=== PATIENT | male | born 1970 | race Two or more races ===

== ENCOUNTER 2020-07-12 14:10 | Emergency (ER) | payer OTHER, MEDICAID ==
[~2020-07-12] VITALS: Ht 182.9 cm; Wt 81.6 kg
[2020-07-12 14:34] VITALS: BP 139/67
== END 2020-07-12 17:39 | disposition home or self-care (01) ==
LOC: ER 14:12
DX: S62.645A Nondisplaced fracture of proximal phalanx of left ring finger, initial encounter for closed fracture (principal); W01.0XXA Fall on same level from slipping, tripping and stumbling without subsequent striking against object, initial encounter; Y93.89 Activity, other specified; Y92.89 Other specified places as the place of occurrence of the external cause; Y99.8 Other external cause status
CPT/HCPCS: 29130; 73140

== ENCOUNTER 2021-05-06 05:08 | Emergency (ER) | payer MEDICAID, OTHER ==
[~2021-05-06] VITALS: Ht 180.3 cm; Wt 88.5 kg
[2021-05-06] MEDS ORDERED: NALOXONE HCL 1MG/ML 2ML SYRINGE ONE (05:13)
[2021-05-06] MEDS ORDERED: SODIUM CHLORIDE 0.9% 3,000 ML IV ONE (05:30)
[2021-05-06] MEDS ORDERED: NALOXONE HCL 1MG/ML 2ML SYRINGE IV ONE (06:30)
[2021-05-06] MEDS ORDERED: SODIUM CHLORIDE 0.9% 1,000 ML IV ONE (06:30)
[2021-05-06 06:53] LABS: Acetaminophen < 2.0 ug/mL (10-30); Salicylate < 1.7 mg/dL (2.8-20.0)
[2021-05-06 06:54] LABS: Albumin 2.9 g/dL (3.4-5.0); Anion Gap 7 (5-15); Blood Alcohol < 3.0 mg/dL (0-5); Blood Urea Nitrogen 4 mg/dL (7-18); Calcium 8.3 mg/dL (8.5-10.1); Carbon Dioxide 28 mmol/L (21-32); Chloride 101 mmol/L (98-107); Potassium 3.4 mmol/L (3.5-5.1); Sodium 136 mmol/L (136-145)
[2021-05-06 06:59] LABS: Basophils # (auto) 0 10 ^3/uL (0-0.2); Basophils % (auto) 0.5 % (0.0-2.0); Eosinophils # (auto) 0.1 10 ^3/uL (0-0.8); Eosinophils % (auto) 1.7 % (0.0-7.0); Hematocrit 42.7 % (41.0-53.0); Hemoglobin 15.1 g/dL (13.5-17.5); Lymphocytes # (auto) 0.8 10 ^3/uL (0.4-5.4); Lymphocytes % (auto) 21.5 % (10.0-50.0); Mean Corpuscular Hgb Conc. 35.3 g/dL (32.0-36.0); Mean Corpuscular Volume 96.2 fL (80.0-100.0); Monocytes # (auto) 0.4 10 ^3/uL (0-1.3); Monocytes % (auto) 9.4 % (0.0-12.0); Neutrophils # (auto) 2.6 10 ^3/uL (1.6-8.6); Neutrophils % (auto) 66.9 % (37.0-80.0); Nucleated Red Blood Cells % 0.1 %; Red Blood Cells 4.44 10^6/uL (4.5-5.90); Red Cell Distribution Width 12.4 % (11.8-14.3); White Blood Cell 3.9 10^3/uL (4.4-10.8)
[2021-05-06 07:00] VITALS: BP 138/85
[2021-05-06 07:03] LABS: Alanine Aminotransferase 54 U/L (16-61); Alkaline Phosphatase 118 U/L (45-117); Aspartate Aminotransferase 73 U/L (15-37); BUN/Creatinine Ratio 5.3; Bilirubin, Total 0.6 mg/dL (0.2-1.0); GFR African American 141 mL/min; GFR Non-African American 117 mL/min; Total Protein 7.1 g/dL (6.4-8.2)
[2021-05-06 07:08] LABS: Glucose 639 mg/dL (74-106)
[2021-05-06 07:52] LABS: Urine Bacteria FEW /hpf (None Seen); Urine Blood Negative /uL (Negative); Urine Specific Gravity 1.026 (1.001-1.035); Urine WBC <1 /hpf (0 - 3)
== END 2021-05-06 09:48 | disposition home or self-care (01) ==
LOC: ER 05:08 → EDBD 05:08 → ER 09:48
DX: T40.691A Poisoning by other narcotics, accidental (unintentional), initial encounter (principal); R41.82 Altered mental status, unspecified; R06.03 Acute respiratory distress; F12.10 Cannabis abuse, uncomplicated; E11.9 Type 2 diabetes mellitus without complications; Y92.89 Other specified places as the place of occurrence of the external cause
CPT/HCPCS: 36415; 71045; 80053; 80320; 80329; 81001; 82010; 84484; 85025; 93005; 96361; 96374; 99285; J2310; J7030

== ENCOUNTER 2021-08-13 19:08 | Inpatient (IN) | payer OTHER, MEDICAID ==
[~2021-08-13] VITALS: Ht 185.4 cm; Wt 92.8 kg
[2021-08-13 21:40] LABS: Basophils # (auto) 0.1 10 ^3/uL (0-0.2); Basophils % (auto) 1.7 % (0.0-2.0); Eosinophils # (auto) 0.2 10 ^3/uL (0-0.8); Eosinophils % (auto) 3.6 % (0.0-7.0); Hematocrit 42.2 % (41.0-53.0); Hemoglobin 15.2 g/dL (13.5-17.5); Lymphocytes # (auto) 1.6 10 ^3/uL (0.4-5.4); Lymphocytes % (auto) 34.5 % (10.0-50.0); Mean Corpuscular Hgb Conc. 35.9 g/dL (32.0-36.0); Mean Corpuscular Volume 91.8 fL (80.0-100.0); Monocytes # (auto) 0.6 10 ^3/uL (0-1.3); Monocytes % (auto) 12.5 % (0.0-12.0); Neutrophils # (auto) 2.2 10 ^3/uL (1.6-8.6); Neutrophils % (auto) 47.7 % (37.0-80.0); Nucleated Red Blood Cells % 0.2 %; Red Cell Distribution Width 13.4 % (11.8-14.3); White Blood Cell 4.7 10^3/uL (4.4-10.8)
[2021-08-13 21:51] LABS: INR 1.07 (0.9-1.15)
[2021-08-13 21:59] LABS: Albumin 3.2 g/dL (3.4-5.0); Calcium 8.7 mg/dL (8.5-10.1); Potassium 3.8 mmol/L (3.5-5.1)
[2021-08-13 22:01] LABS: Bilirubin, Total 0.8 mg/dL (0.2-1.0)
[2021-08-13 22:26] LABS: BUN/Creatinine Ratio 13.3
[2021-08-14] MEDS ORDERED: LACTULOSE 20Gm/30ML SOLN PO ONE (03:45)
[2021-08-14] MEDS ORDERED: DEXTROSE (50%) 50ML SYRG IV PRN (10:15)
[2021-08-14] MEDS ORDERED: ONDANSETRON HCL 4 MG/2 ML VIAL IV PRN (10:15)
[2021-08-14] MEDS ORDERED: NICOTINE 7MG/24HR TOPICAL PATCH TD ONE (10:15)
[2021-08-14] MEDS ORDERED: IOHEXOL 300 MG/ML 100ML BOTTLE IJ ONE (10:23)
[2021-08-14] MEDS: ACCU-CHEK COMFORT CURVE STRIP VI SCH ×3 (12:10→23:39)
[2021-08-14] MEDS: MORPHINE SULFATE INJ 2 MG/ml SYRG IV PRN ×3 (12:26→22:17)
[2021-08-14 12:30] LABS: Blood Alcohol < 3.0 mg/dL (0-5); Cholesterol 137 mg/dL (< 200)
[2021-08-14 12:32] LABS: HDL Cholesterol 74 mg/dL (40-59); INR 1.13 (0.9-1.15); LDL Cholesterol 60 mg/dL (< 100); Triglycerides 74 mg/dL (< 150)
[2021-08-14] MEDS: LACTATED RINGER'S 1,000 ML IV SCH ×2 (12:41→18:36)
[2021-08-14] MEDS: InsuLIN REG 1unit/0.01ml Soln (100units/ml) SC SCH ×3 (13:08→23:33)
[2021-08-14 19:29] LABS: Urine Bacteria NONE SEEN /hpf (None Seen); Urine Blood Negative /uL (Negative); Urine Hyaline Cast MANY /lpf (0 - 2); Urine Mucus FEW (None Seen); Urine Specific Gravity 1.029 (1.001-1.035); Urine WBC 3 /hpf (0 - 3)
[2021-08-14 19:53] LABS: Amphetamine Screen, Urine NEGATIVE (NEGATIVE); Barbiturate Scree,Urine NEGATIVE (NEGATIVE); Benzodiazephine Screen, Urine NEGATIVE (NEGATIVE); Cannabinoid Screen, Urine NEGATIVE (NEGATIVE); Cocaine Screen, Urine NEGATIVE (NEGATIVE); Opiate Scree,Urine POSITIVE (NEGATIVE); Phencyclidine Screen, Urine NEGATIVE (NEGATIVE)
[2021-08-14 20:00] VITALS: BP 124/74
[2021-08-14] MEDS: LACTULOSE 20Gm/30ML SOLN PO SCH (21:53)
[2021-08-14 22:00] VITALS: BP 124/78
[2021-08-14 22:47] VITALS: BP 147/75
[2021-08-14] MEDS ORDERED: INSU100I4 SC (23:23)
[2021-08-14] MEDS ORDERED: INSU100I51 SC (23:23)
[2021-08-14] MEDS ORDERED: INSLANTI SC (23:23)
[2021-08-14] MEDS ORDERED: INSU1INJ19 SC (23:23)
[2021-08-14] MEDS ORDERED: GAB100C PO (23:23)
[2021-08-14] MEDS ORDERED: QUET200T45 PO (23:23)
[2021-08-14] MEDS ORDERED: GLUC-20 (23:23)
[2021-08-14] MEDS ORDERED: INSU31MI32 SC (23:23)
[2021-08-14] MEDS ORDERED: LACT10SO3 PO (23:23)
[2021-08-14] MEDS ORDERED: QUEtiapine FUMARATE 100 MG TAB PO SCH (23:30)
[2021-08-15] MEDS: LACTATED RINGER'S 1,000 ML IV SCH ×2 (01:12→10:13)
[2021-08-15 05:00] VITALS: BP 122/66
[2021-08-15] MEDS: ACCU-CHEK COMFORT CURVE STRIP VI SCH ×4 (06:20→23:40)
[2021-08-15] MEDS: InsuLIN REG 1unit/0.01ml Soln (100units/ml) SC SCH ×4 (06:22→23:18)
[2021-08-15 07:14] LABS: Basophils # (auto) 0 10 ^3/uL (0-0.2); Basophils % (auto) 0.6 % (0.0-2.0); Eosinophils # (auto) 0.1 10 ^3/uL (0-0.8); Lymphocytes # (auto) 1.6 10 ^3/uL (0.4-5.4); Lymphocytes % (auto) 34.8 % (10.0-50.0); Monocytes # (auto) 0.7 10 ^3/uL (0-1.3); Monocytes % (auto) 15.7 % (0.0-12.0); Neutrophils # (auto) 2.1 10 ^3/uL (1.6-8.6); Neutrophils % (auto) 45.9 % (37.0-80.0); Nucleated Red Blood Cells % 0.2 %; Red Blood Cells 4.46 10^6/uL (4.5-5.90); White Blood Cell 4.5 10^3/uL (4.4-10.8)
[2021-08-15 07:19] LABS: Albumin 2.8 g/dL (3.4-5.0); Calcium 8.1 mg/dL (8.5-10.1); Potassium 3.5 mmol/L (3.5-5.1)
[2021-08-15 07:22] LABS: BUN/Creatinine Ratio 18.9; Total Protein 6.2 g/dL (6.4-8.2)
[2021-08-15 08:16] LABS: Hematocrit 40.7 % (41.0-53.0); Hemoglobin 14.5 g/dL (13.5-17.5); Mean Corpuscular Hemoglobin 32.5 pg (28.0-32.0); Mean Corpuscular Hgb Conc. 35.6 g/dL (32.0-36.0); Mean Corpuscular Volume 91.3 fL (80.0-100.0)
[2021-08-15 08:17] LABS: Red Cell Distribution Width 12.9 % (11.8-14.3)
[2021-08-15 08:30] VITALS: BP 136/73
[2021-08-15 09:00] VITALS: BP 136/73
[2021-08-15] MEDS ORDERED: FAMOTIDINE (10MG/ML) 2ML VL IV SCH (10:00)
[2021-08-15] MEDS: LACTULOSE 20Gm/30ML SOLN PO SCH ×2 (10:03→22:15)
[2021-08-15] MEDS: NICOTINE 7MG/24HR TOPICAL PATCH TD SCH (10:04)
[2021-08-15] MEDS: MORPHINE SULFATE INJ 2 MG/ml SYRG IV PRN ×3 (10:57→22:23)
[2021-08-15 13:00] VITALS: BP 159/88
[2021-08-15] MEDS: PROPRANOLOL HCL 20 MG TAB PO SCH ×2 (13:31→22:16)
[2021-08-15 17:00] VITALS: BP 142/88
[2021-08-15] MEDS ORDERED: INSULIN LANTUS (GLARGINE) 1 /0.01ml (100units/ml) SC SCH (22:00)
[2021-08-15 22:07] VITALS: BP 139/82
[2021-08-15] MEDS: QUEtiapine FUMARATE 100 MG TAB PO SCH (22:15)
[2021-08-15] MEDS: FAMOTIDINE 20 MG TAB PO SCH (22:15)
[2021-08-16 05:00] VITALS: BP 103/57
[2021-08-16] MEDS: PROPRANOLOL HCL 20 MG TAB PO SCH ×3 (05:37→23:30)
[2021-08-16] MEDS: ACCU-CHEK COMFORT CURVE STRIP VI SCH ×3 (05:59→18:22)
[2021-08-16] MEDS: InsuLIN REG 1unit/0.01ml Soln (100units/ml) SC SCH ×3 (06:02→18:18)
[2021-08-16 08:00] VITALS: BP 130/74
[2021-08-16 09:00] VITALS: BP 117/72
[2021-08-16 09:48] LABS: Hepatitis B Surface Antibody Negative (Negative)
[2021-08-16] MEDS: LACTULOSE 20Gm/30ML SOLN PO SCH ×2 (10:02→22:00)
[2021-08-16] MEDS: SPIRONOLACTONE 25 MG TAB PO SCH (10:02)
[2021-08-16] MEDS: FUROSEMIDE 20 MG TAB PO SCH (10:02)
[2021-08-16] MEDS: FAMOTIDINE 20 MG TAB PO SCH ×2 (10:03→23:30)
[2021-08-16] MEDS: NICOTINE 7MG/24HR TOPICAL PATCH TD SCH (10:10)
[2021-08-16] MEDS: MORPHINE SULFATE INJ 2 MG/ml SYRG IV PRN ×2 (10:12→21:45)
[2021-08-16] MEDS ORDERED: DEXTROSE (50%) 50ML SYRG IV PRN (10:15)
[2021-08-16] MEDS ORDERED: cefTRIAXone 1GM/50ML D5W 50 ML IV ONE (10:15)
[2021-08-16] MEDS ORDERED: CLINDAMYCIN 600MG IV 50 ML IV ONE (10:15)
[2021-08-16 11:25] LABS: Hepatitis A Total Antibody Negative (Negative)
[2021-08-16 12:34] LABS: Hepatitis C Antibody Positive (Negative)
[2021-08-16 13:00] VITALS: BP 130/74
[2021-08-16 17:00] VITALS: BP 124/83
[2021-08-16] MEDS: CLINDAMYCIN 600MG IV 50 ML IV SCH (18:25)
[2021-08-16 22:00] VITALS: BP 112/67
[2021-08-16] MEDS: QUEtiapine FUMARATE 100 MG TAB PO SCH (23:30)
[2021-08-16] MEDS: INSULIN LANTUS (GLARGINE) 1 /0.01ml (100units/ml) SC SCH (23:33)
[2021-08-17] MEDS: ACCU-CHEK COMFORT CURVE STRIP VI SCH ×4 (00:11→17:12)
[2021-08-17] MEDS: InsuLIN REG 1unit/0.01ml Soln (100units/ml) SC SCH ×5 (00:12→23:54)
[2021-08-17] MEDS: CLINDAMYCIN 600MG IV 50 ML IV SCH ×3 (02:01→17:12)
[2021-08-17 05:00] VITALS: BP 91/59
[2021-08-17] MEDS: PROPRANOLOL HCL 20 MG TAB PO SCH ×3 (05:59→22:06)
[2021-08-17 06:02] LABS: BUN/Creatinine Ratio 17.2; Calcium 8.7 mg/dL (8.5-10.1); Potassium 3.6 mmol/L (3.5-5.1)
[2021-08-17 06:43] LABS: Basophils # (auto) 0 10 ^3/uL (0-0.2); Eosinophils # (auto) 0.2 10 ^3/uL (0-0.8); Eosinophils % (auto) 3.6 % (0.0-7.0); Hematocrit 43.9 % (41.0-53.0); Hemoglobin 15.7 g/dL (13.5-17.5); Lymphocytes # (auto) 2.2 10 ^3/uL (0.4-5.4); Lymphocytes % (auto) 46.4 % (10.0-50.0); Mean Corpuscular Hemoglobin 32.2 pg (28.0-32.0); Mean Corpuscular Hgb Conc. 35.7 g/dL (32.0-36.0); Mean Corpuscular Volume 90.2 fL (80.0-100.0); Monocytes # (auto) 0.7 10 ^3/uL (0-1.3); Monocytes % (auto) 14.4 % (0.0-12.0); Neutrophils # (auto) 1.6 10 ^3/uL (1.6-8.6); Neutrophils % (auto) 34.6 % (37.0-80.0); Nucleated Red Blood Cells % 0.3 %; Red Blood Cells 4.87 10^6/uL (4.5-5.90); Red Cell Distribution Width 12.9 % (11.8-14.3); White Blood Cell 4.7 10^3/uL (4.4-10.8)
[2021-08-17 09:00] VITALS: BP 100/63
[2021-08-17] MEDS: LACTULOSE 20Gm/30ML SOLN PO SCH ×2 (11:11→22:03)
[2021-08-17] MEDS: cefTRIAXone 1GM/50ML D5W 50 ML IV SCH (11:11)
[2021-08-17] MEDS: FAMOTIDINE 20 MG TAB PO SCH ×2 (11:12→22:03)
[2021-08-17] MEDS: NICOTINE 7MG/24HR TOPICAL PATCH TD SCH (11:12)
[2021-08-17] MEDS: SPIRONOLACTONE 25 MG TAB PO SCH (11:13)
[2021-08-17] MEDS: FUROSEMIDE 20 MG TAB PO SCH (11:13)
[2021-08-17] MEDS: MORPHINE SULFATE INJ 2 MG/ml SYRG IV PRN ×3 (11:15→20:15)
[2021-08-17] MEDS: INSULIN LANTUS (GLARGINE) 1 /0.01ml (100units/ml) SC SCH ×2 (11:28→22:03)
[2021-08-17 13:00] VITALS: BP 100/66
[2021-08-17 17:00] VITALS: BP_SYST 109; BP_SYST 111; BP_DIAS 64; BP_DIAS 69
[2021-08-17 22:00] VITALS: BP 91/58
[2021-08-17] MEDS: QUEtiapine FUMARATE 100 MG TAB PO SCH (22:04)
[2021-08-18] MEDS: CLINDAMYCIN 600MG IV 50 ML IV SCH ×3 (02:26→18:18)
[2021-08-18] MEDS: traMADol HCL 50 MG TAB PO PRN (03:53)
[2021-08-18 05:00] VITALS: BP 89/56
[2021-08-18] MEDS: ACCU-CHEK COMFORT CURVE STRIP VI SCH ×5 (06:17→23:53)
[2021-08-18] MEDS: InsuLIN REG 1unit/0.01ml Soln (100units/ml) SC SCH ×4 (06:19→23:54)
[2021-08-18] MEDS: PROPRANOLOL HCL 20 MG TAB PO SCH ×3 (06:34→22:30)
[2021-08-18 09:00] VITALS: BP 91/58
[2021-08-18] MEDS: cefTRIAXone 1GM/50ML D5W 50 ML IV SCH (09:00)
[2021-08-18] MEDS: FUROSEMIDE 20 MG TAB PO SCH (10:00)
[2021-08-18] MEDS: SPIRONOLACTONE 25 MG TAB PO SCH (10:00)
[2021-08-18] MEDS: LACTULOSE 20Gm/30ML SOLN PO SCH ×2 (10:00→21:55)
[2021-08-18] MEDS: INSULIN LANTUS (GLARGINE) 1 /0.01ml (100units/ml) SC SCH ×2 (10:00→21:57)
[2021-08-18] MEDS: NICOTINE 7MG/24HR TOPICAL PATCH TD SCH (10:00)
[2021-08-18] MEDS: FAMOTIDINE 20 MG TAB PO SCH (10:00)
[2021-08-18] MEDS ORDERED: ROPIVACAINE 0.5% (5MG/ML) 20ML AMPULE IJ ONE (10:27)
[2021-08-18] MEDS ORDERED: ceFAZolin 1GM VL ONE (10:27)
[2021-08-18] MEDS ORDERED: CLINDAMYCIN 600MG IV 0 ML IV ONE (10:33)
[2021-08-18] MEDS ORDERED: ONDANSETRON HCL 4 MG/2 ML VIAL ONE (10:33)
[2021-08-18] MEDS ORDERED: PROPOFOL 10 MG/ML 20 ML IV ONE (10:33)
[2021-08-18] MEDS ORDERED: MIDAZOLAM HCL 2MG/2ML 2ml VIAL (1mg/ml) ONE (10:33)
[2021-08-18] MEDS ORDERED: fentaNYL CITRATE 100 MCG/2 ML VL ONE (10:33)
[2021-08-18] MEDS ORDERED: VANCOMYCIN HCL 1000 MG VL ONE (10:38)
[2021-08-18] MEDS ORDERED: DexAMETHasone SOD PHOS 10MG/1ML VIAL INJ IV ONE (10:40)
[2021-08-18] MEDS ORDERED: MORPHINE SULFATE 4 MG/ML SYR/VIAL IV PRN (10:45)
[2021-08-18] MEDS ORDERED: METOCLOPRAMIDE HCL 5MG/ml INJ 2ml VIAL IV PRN (10:45)
[2021-08-18] MEDS ORDERED: HYDROmorphone HCL 2 MG/ML VL/or syr IV PRN (10:45)
[2021-08-18] MEDS: CLINDAMYCIN 600MG IV 100 ML IV ONE ×2 (11:03→11:48)
[2021-08-18] MEDS ORDERED: HYDROmorphone HCL 2 MG/ML VL/or syr IV ONE (12:00)
[2021-08-18 16:40] LABS: INR 1.14 (0.9-1.15); Partial Thromboplastin Time 28.8 sec (23.6-33.0)
[2021-08-18 17:00] VITALS: BP 99/58
[2021-08-18] MEDS ORDERED: LIDOCAINE 1% (LOCAL ANESTH.) PF 5ml SDV ID ONE (18:00)
[2021-08-18] MEDS: MORPHINE SULFATE INJ 2 MG/ml SYRG IV PRN ×2 (18:21→23:00)
[2021-08-18] MEDS: SODIUM CHLOR 0.9% PF (SALINE LOCK) 10ML VIAL/SYR IV SCH (21:52)
[2021-08-18] MEDS: QUEtiapine FUMARATE 100 MG TAB PO SCH (21:55)
[2021-08-19] MEDS: CLINDAMYCIN 600MG IV 50 ML IV SCH (01:55)
[2021-08-19 04:09] LABS: BUN/Creatinine Ratio 18.2; Calcium 8.7 mg/dL (8.5-10.1); Potassium 3.9 mmol/L (3.5-5.1)
[2021-08-19 04:41] LABS: Basophils # (auto) 0 10 ^3/uL (0-0.2); Basophils % (auto) 1.1 % (0.0-2.0); Eosinophils # (auto) 0.2 10 ^3/uL (0-0.8); Eosinophils % (auto) 3.9 % (0.0-7.0); Hematocrit 43.5 % (41.0-53.0); Hemoglobin 15.4 g/dL (13.5-17.5); Lymphocytes # (auto) 1.9 10 ^3/uL (0.4-5.4); Lymphocytes % (auto) 45.7 % (10.0-50.0); Mean Corpuscular Hemoglobin 32.1 pg (28.0-32.0); Mean Corpuscular Hgb Conc. 35.3 g/dL (32.0-36.0); Mean Corpuscular Volume 90.9 fL (80.0-100.0); Monocytes # (auto) 0.5 10 ^3/uL (0-1.3); Monocytes % (auto) 12.4 % (0.0-12.0); Neutrophils # (auto) 1.5 10 ^3/uL (1.6-8.6); Neutrophils % (auto) 36.9 % (37.0-80.0); Nucleated Red Blood Cells % 0.3 %; Red Blood Cells 4.79 10^6/uL (4.5-5.90); Red Cell Distribution Width 12.9 % (11.8-14.3); White Blood Cell 4.1 10^3/uL (4.4-10.8)
[2021-08-19] MEDS: ACCU-CHEK COMFORT CURVE STRIP VI SCH ×4 (05:37→23:34)
[2021-08-19] MEDS: InsuLIN REG 1unit/0.01ml Soln (100units/ml) SC SCH ×4 (05:43→23:35)
[2021-08-19] MEDS: MORPHINE SULFATE INJ 2 MG/ml SYRG IV PRN (05:44)
[2021-08-19] MEDS: PROPRANOLOL HCL 20 MG TAB PO SCH ×3 (05:45→21:51)
[2021-08-19 09:00] VITALS: BP 93/52
[2021-08-19] MEDS: cefTRIAXone 1GM/50ML D5W 50 ML IV SCH (09:06)
[2021-08-19] MEDS: SODIUM CHLOR 0.9% PF (SALINE LOCK) 10ML VIAL/SYR IV SCH ×2 (09:06→21:38)
[2021-08-19] MEDS: FUROSEMIDE 20 MG TAB PO SCH (09:07)
[2021-08-19] MEDS: LACTULOSE 20Gm/30ML SOLN PO SCH ×2 (09:07→21:38)
[2021-08-19] MEDS: SPIRONOLACTONE 25 MG TAB PO SCH (09:07)
[2021-08-19] MEDS: traMADol HCL 50 MG TAB PO PRN ×2 (09:08→15:27)
[2021-08-19] MEDS: INSULIN LANTUS (GLARGINE) 1 /0.01ml (100units/ml) SC SCH ×2 (09:15→21:39)
[2021-08-19] MEDS: NICOTINE 7MG/24HR TOPICAL PATCH TD SCH (10:07)
[2021-08-19] MEDS ORDERED: ceFAZolin 1GM/50ML 50 ML IV ONE (10:30)
[2021-08-19] MEDS: ceFAZolin 1GM/50ML 50 ML IV SCH ×2 (15:00→21:38)
[2021-08-19 15:20] VITALS: BP 111/66
[2021-08-19 17:00] VITALS: BP 125/78
[2021-08-19] MEDS: QUEtiapine FUMARATE 100 MG TAB PO SCH (21:39)
[2021-08-19 22:00] VITALS: BP 114/79
[2021-08-20 05:00] VITALS: BP 88/61
[2021-08-20] MEDS: ceFAZolin 1GM/50ML 50 ML IV SCH ×2 (06:03→14:00)
[2021-08-20] MEDS: ACCU-CHEK COMFORT CURVE STRIP VI SCH ×2 (06:03→12:00)
[2021-08-20] MEDS: PROPRANOLOL HCL 20 MG TAB PO SCH ×2 (06:19→14:00)
[2021-08-20] MEDS: InsuLIN REG 1unit/0.01ml Soln (100units/ml) SC SCH ×2 (06:20→12:00)
[2021-08-20 09:00] VITALS: BP 100/60
[2021-08-20] MEDS: LACTULOSE 20Gm/30ML SOLN PO SCH (10:44)
[2021-08-20] MEDS ORDERED: PROP20TA73 PO (10:44)
[2021-08-20] MEDS ORDERED: LACT10SO3 PO (10:44)
[2021-08-20] MEDS ORDERED: FUR20T PO (10:44)
[2021-08-20] MEDS ORDERED: SPIR25TA PO (10:44)
[2021-08-20] MEDS: SPIRONOLACTONE 25 MG TAB PO SCH (10:45)
[2021-08-20] MEDS: SODIUM CHLOR 0.9% PF (SALINE LOCK) 10ML VIAL/SYR IV SCH (10:45)
[2021-08-20] MEDS: FUROSEMIDE 20 MG TAB PO SCH (10:45)
[2021-08-20] MEDS: NICOTINE 7MG/24HR TOPICAL PATCH TD SCH (10:46)
[2021-08-20] MEDS: INSULIN LANTUS (GLARGINE) 1 /0.01ml (100units/ml) SC SCH (10:56)
[2021-08-20] MEDS: MORPHINE SULFATE INJ 2 MG/ml SYRG IV PRN (11:07)
[2021-08-20 13:00] VITALS: BP 102/71
[2021-08-20 13:58] VITALS: BP 100/60
[2021-08-20] MEDS ORDERED: DOXY-346 PO (15:31)
== END 2021-08-20 18:00 | disposition hospice, home (50) | DRG 622 ==
LOC: EDUNIT# 19:08 → ER 19:08 → EDBD 19:08 → OVERFLOW 08-14 10:10 → CENTRAL 08-14 19:30
PROVIDERS: ADMIT Registered Nurse; ATTEND Internal Medicine
PROC: 02HV33Z Insertion of Infusion Device into Superior Vena Cava, Percutaneous Approach (ICD-10-PCS; 2021-08-18)
PROC: B548ZZA Ultrasonography of Superior Vena Cava, Guidance (ICD-10-PCS; 2021-08-18)
PROC: 0LBV0ZZ Excision of Right Foot Tendon, Open Approach (ICD-10-PCS; principal; 2021-08-18 10:50)
DX: E11.621 Type 2 diabetes mellitus with foot ulcer (principal); K85.90 Acute pancreatitis without necrosis or infection, unspecified; L02.611 Cutaneous abscess of right foot; M86.8X7 Other osteomyelitis, ankle and foot; K76.6 Portal hypertension; E11.69 Type 2 diabetes mellitus with other specified complication; K74.60 Unspecified cirrhosis of liver; K72.90 Hepatic failure, unspecified without coma; F10.10 Alcohol abuse, uncomplicated; B19.20 Unspecified viral hepatitis C without hepatic coma; B95.8 Unspecified staphylococcus as the cause of diseases classified elsewhere; Z20.822 Contact with and (suspected) exposure to COVID-19; F17.210 Nicotine dependence, cigarettes, uncomplicated; F31.9 Bipolar disorder, unspecified; L03.031 Cellulitis of right toe; L97.519 Non-pressure chronic ulcer of other part of right foot with unspecified severity; Z79.899 Other long term (current) drug therapy; Z88.8 Allergy status to other drugs, medicaments and biological substances; Z71.6 Tobacco abuse counseling
CPT/HCPCS: 36415; 36569; 71045; 71250; 73718; 74176; 74177; 80048; 80053; 80061; 80307; 80320; 81001; 82140; 82962; 83036; 83690; 84484; 85025; 85610; 85652; 85730; 86704; 86706; 86708; 86803; 87070; 87075; 87077; 87186; 87205; 87340; 93005; 93926; G0378; J0690; J0696; J1100; J1815; J2250; J2405; J2704; J3490

== ENCOUNTER 2021-08-26 16:14 | Inpatient (IN) | payer OTHER, MEDICAID ==
[~2021-08-26] VITALS: Ht 172.7 cm; Wt 89.0 kg
[~2021-08-26 16:14] MED LIST: DOXY-346 PO; FUR20T PO; GAB100C PO; GLUC-20; INSLANTI SC; INSU100I4 SC; INSU100I51 SC; INSU1INJ19 SC; INSU31MI32 SC; LACT10SO3 PO; PROP20TA73 PO; QUET200T45 PO; SPIR25TA PO
[2021-08-26 17:19] LABS: Basophils # (auto) 0.1 10 ^3/uL (0-0.2); Basophils % (auto) 0.5 % (0.0-2.0); Eosinophils # (auto) 0.1 10 ^3/uL (0-0.8); Eosinophils % (auto) 0.4 % (0.0-7.0); Hematocrit 39.6 % (41.0-53.0); Hemoglobin 14.3 g/dL (13.5-17.5); Lymphocytes # (auto) 1.1 10 ^3/uL (0.4-5.4); Mean Corpuscular Volume 88.8 fL (80.0-100.0); Monocytes % (auto) 8.2 % (0.0-12.0); Neutrophils # (auto) 10.3 10 ^3/uL (1.6-8.6); Neutrophils % (auto) 81.9 % (37.0-80.0); Red Blood Cells 4.46 10^6/uL (4.5-5.90); Red Cell Distribution Width 12.9 % (11.8-14.3); White Blood Cell 12.6 10^3/uL (4.4-10.8)
[2021-08-26 17:35] LABS: Albumin 2.6 g/dL (3.4-5.0); Calcium 8.1 mg/dL (8.5-10.1); Magnesium 2.2 mg/dL (1.6-2.6); Potassium 3.4 mmol/L (3.5-5.1)
[2021-08-26 17:36] LABS: INR 1.26 (0.9-1.15); Partial Thromboplastin Time 30.2 sec (23.6-33.0)
[2021-08-26 17:38] LABS: BUN/Creatinine Ratio 13.8; Bilirubin, Total 1.2 mg/dL (0.2-1.0); Total Protein 6.6 g/dL (6.4-8.2)
[2021-08-26 18:32] LABS: Urine Bacteria NONE SEEN /hpf (None Seen); Urine Blood Negative /uL (Negative); Urine Specific Gravity 1.015 (1.001-1.035); Urine WBC 2 /hpf (0 - 3)
[2021-08-26] MEDS ORDERED: levoFLOXacin 250 MG TAB PO ONE (19:15)
[2021-08-26 19:37] LABS: Alcohol, Urine < 3.0 mg/dL (0-10); Amphetamine Screen, Urine NEGATIVE (NEGATIVE); Barbiturate Scree,Urine NEGATIVE (NEGATIVE); Benzodiazephine Screen, Urine NEGATIVE (NEGATIVE); Cannabinoid Screen, Urine NEGATIVE (NEGATIVE); Cocaine Screen, Urine NEGATIVE (NEGATIVE); Opiate Scree,Urine POSITIVE (NEGATIVE); Phencyclidine Screen, Urine NEGATIVE (NEGATIVE)
[2021-08-26] MEDS ORDERED: DEXTROSE (50%) 50ML SYRG IV PRN (21:00)
[2021-08-26] MEDS ORDERED: DOCUSATE SOD 100 MG CAP PO PRN (21:00)
[2021-08-26] MEDS ORDERED: ONDANSETRON HCL 4 MG/2 ML VIAL IV PRN (21:00)
[2021-08-26] MEDS ORDERED: ACETAMINOPHEN 325 MG TAB PO PRN (21:00)
[2021-08-26] MEDS ORDERED: POTASSIUM CHL 20 Meq TABLET PO ONE (21:00)
[2021-08-26] MEDS: ACCU-CHEK COMFORT CURVE STRIP VI SCH (22:00)
[2021-08-26] MEDS: SODIUM CHLOR 0.9% PF (SALINE LOCK) 10ML VIAL/SYR IV SCH (22:00)
[2021-08-26] MEDS: InsuLIN REG 1unit/0.01ml Soln (100units/ml) SC SCH (22:00)
[2021-08-26] MEDS ORDERED: NITROGLYCERIN 0.4 MG SL TAB SL PRN (22:45)
[2021-08-26] MEDS ORDERED: MORPHINE SULFATE INJ 2 MG/ml SYRG IV PRN (22:45)
[2021-08-27] MEDS: LACTULOSE 20Gm/30ML SOLN PO SCH ×5 (00:27→23:12)
[2021-08-27] MEDS: HYDROcodone-ACET 5/325MG TAB PO PRN ×3 (00:28→17:20)
[2021-08-27] MEDS: SODIUM CHLOR 0.9% PF (SALINE LOCK) 10ML VIAL/SYR IV SCH ×3 (06:00→22:19)
[2021-08-27] MEDS ORDERED: FUROSEMIDE 20 MG/2 ML VIAL IV SCH (06:00)
[2021-08-27] MEDS: ACCU-CHEK COMFORT CURVE STRIP VI SCH ×4 (06:45→22:14)
[2021-08-27] MEDS: InsuLIN REG 1unit/0.01ml Soln (100units/ml) SC SCH ×4 (06:46→22:04)
[2021-08-27 07:10] LABS: Basophils # (auto) 0.1 10 ^3/uL (0-0.2); Eosinophils # (auto) 0.1 10 ^3/uL (0-0.8); Lymphocytes # (auto) 1.1 10 ^3/uL (0.4-5.4); Monocytes % (auto) 10.1 % (0.0-12.0)
[2021-08-27 07:13] LABS: Basophils % (auto) 0.5 % (0.0-2.0); Hematocrit 40.4 % (41.0-53.0); Hemoglobin 14.7 g/dL (13.5-17.5); Lymphocytes % (auto) 10.3 % (10.0-50.0); Mean Corpuscular Hemoglobin 32.3 pg (28.0-32.0); Mean Corpuscular Hgb Conc. 36.4 g/dL (32.0-36.0); Mean Corpuscular Volume 88.6 fL (80.0-100.0); Neutrophils % (auto) 78.1 % (37.0-80.0); Nucleated Red Blood Cells % 0.1 %; Red Blood Cells 4.56 10^6/uL (4.5-5.90); Red Cell Distribution Width 13.2 % (11.8-14.3); White Blood Cell 10.3 10^3/uL (4.4-10.8)
[2021-08-27 07:27] LABS: Albumin 2.7 g/dL (3.4-5.0); Calcium 8.4 mg/dL (8.5-10.1); Potassium 3.4 mmol/L (3.5-5.1)
[2021-08-27 07:28] LABS: BUN/Creatinine Ratio 12.5
[2021-08-27 07:31] LABS: Bilirubin, Total 1.3 mg/dL (0.2-1.0); Total Protein 6.5 g/dL (6.4-8.2)
[2021-08-27] MEDS: AZITHROMYCIN 500MG/ 250ML 250 ML IV SCH (10:11)
[2021-08-27] MEDS: FAMOTIDINE (10MG/ML) 2ML VL IV SCH (10:11)
[2021-08-27] MEDS: ENOXAPARIN SOD 40 MG/0.4 ML SYRINGE SC SCH (10:11)
[2021-08-27 15:39] VITALS: BP 141/83
[2021-08-27] MEDS ORDERED: cefTRIAXone 1GM/50ML D5W 50 ML IV ONE (15:45)
[2021-08-27] MEDS ORDERED: POTASSIUM CHL 20 Meq TABLET PO ONE (15:45)
[2021-08-27] MEDS ORDERED: TRAM50TA2 PO (16:12)
[2021-08-27] MEDS ORDERED: MORP15TA PO (16:12)
[2021-08-27] MEDS ORDERED: LAMO25TA27 PO (16:12)
[2021-08-27] MEDS ORDERED: FAMO-12 PO (16:12)
[2021-08-27] MEDS ORDERED: VENL-222 PO (16:12)
[2021-08-27 17:15] VITALS: BP 132/74
[2021-08-27] MEDS: MORPHINE SULFATE INJ 2 MG/ml SYRG IV PRN ×2 (17:55→22:19)
[2021-08-27 22:00] VITALS: BP 119/71
[2021-08-27] MEDS: QUEtiapine FUMARATE 100 MG TAB PO SCH (22:15)
[2021-08-28 04:37] LABS: BUN/Creatinine Ratio 11.1; Calcium 7.9 mg/dL (8.5-10.1); Potassium 3.1 mmol/L (3.5-5.1)
[2021-08-28 05:00] VITALS: BP 100/51
[2021-08-28] MEDS ORDERED: POTASSIUM CHL 20 Meq TABLET PO ONE (05:30)
[2021-08-28] MEDS: LACTULOSE 20Gm/30ML SOLN PO SCH ×3 (06:00→17:47)
[2021-08-28] MEDS: InsuLIN REG 1unit/0.01ml Soln (100units/ml) SC SCH ×4 (06:12→22:38)
[2021-08-28] MEDS: SODIUM CHLOR 0.9% PF (SALINE LOCK) 10ML VIAL/SYR IV SCH ×3 (06:15→22:21)
[2021-08-28] MEDS: ACCU-CHEK COMFORT CURVE STRIP VI SCH ×4 (06:16→22:00)
[2021-08-28 07:30] VITALS: BP 131/74
[2021-08-28] MEDS: FAMOTIDINE (10MG/ML) 2ML VL IV SCH (08:29)
[2021-08-28] MEDS: AZITHROMYCIN 500MG/ 250ML 250 ML IV SCH (08:29)
[2021-08-28] MEDS: ENOXAPARIN SOD 40 MG/0.4 ML SYRINGE SC SCH (08:31)
[2021-08-28] MEDS: DAKINS QUARTER STR 0.125% (NaHypochlorite) 473 ML TOPICAL SOL TOP SCH (08:31)
[2021-08-28 09:00] VITALS: BP 137/82
[2021-08-28] MEDS ORDERED: cefTRIAXone 1GM/50ML D5W 50 ML IV SCH (09:00)
[2021-08-28] MEDS: MORPHINE SULFATE INJ 2 MG/ml SYRG IV PRN ×4 (09:48→22:37)
[2021-08-28] MEDS ORDERED: FUROSEMIDE 20 MG TAB PO SCH (10:00)
[2021-08-28 13:00] VITALS: BP 130/78
[2021-08-28] MEDS ORDERED: SPIRONOLACTONE 25 MG TAB PO ONE (14:45)
[2021-08-28] MEDS ORDERED: POTASSIUM CHL 10 Meq TABLET PO ONE (14:45)
[2021-08-28] MEDS ORDERED: FUROSEMIDE 40 MG/4 ML VIAL IV ONE (14:45)
[2021-08-28] MEDS ORDERED: VENLAFAXINE HCL 37.5mg XR cap PO ONE (14:45)
[2021-08-28] MEDS: DOXYCYCLINE 100MG/250ML 250 ML IV SCH (15:23)
[2021-08-28 17:00] VITALS: BP 143/82
[2021-08-28 21:42] VITALS: BP 119/79
[2021-08-28] MEDS: QUEtiapine FUMARATE 100 MG TAB PO SCH (22:30)
[2021-08-28] MEDS: VENLAFAXINE HCL 37.5mg XR cap PO SCH (22:30)
[2021-08-28] MEDS: INSULIN LANTUS (GLARGINE) 1 /0.01ml (100units/ml) SC SCH (22:39)
[2021-08-29] MEDS: DOXYCYCLINE 100MG/250ML 250 ML IV SCH ×2 (03:22→16:07)
[2021-08-29] MEDS: SODIUM CHLOR 0.9% PF (SALINE LOCK) 10ML VIAL/SYR IV SCH ×3 (03:22→22:11)
[2021-08-29 04:57] VITALS: BP 127/79
[2021-08-29 05:51] LABS: Hematocrit 37.7 % (41.0-53.0); Hemoglobin 13.4 g/dL (13.5-17.5); Mean Corpuscular Hemoglobin 31.3 pg (28.0-32.0); Mean Corpuscular Hgb Conc. 35.5 g/dL (32.0-36.0); Mean Corpuscular Volume 88.2 fL (80.0-100.0); Red Blood Cells 4.27 10^6/uL (4.5-5.90); Red Cell Distribution Width 12.7 % (11.8-14.3); White Blood Cell 4.8 10^3/uL (4.4-10.8)
[2021-08-29 06:17] LABS: Band Neutrophils % (manual) 0; Basophils % (manual) 0 (0.0-2.0); Blast Cells 0; Calcium 7.8 mg/dL (8.5-10.1); Metamyelocytes % 0; Myelocytes % 0; Potassium 3.3 mmol/L (3.5-5.1); Promyelocytes % 0; Reactive Lymphocytes 0
[2021-08-29 06:20] LABS: BUN/Creatinine Ratio 11.1
[2021-08-29] MEDS: InsuLIN REG 1unit/0.01ml Soln (100units/ml) SC SCH ×4 (06:25→21:44)
[2021-08-29] MEDS: LACTULOSE 20Gm/30ML SOLN PO SCH ×4 (06:33→18:00)
[2021-08-29] MEDS: MORPHINE SULFATE INJ 2 MG/ml SYRG IV PRN ×4 (06:35→20:22)
[2021-08-29 06:39] LABS: Eosinophils % (manual) 3 (0-7); Lymphocytes % (manual) 29 (10.0-50.0); Monocytes % (manual) 16 (0-12)
[2021-08-29] MEDS: ACCU-CHEK COMFORT CURVE STRIP VI SCH ×4 (07:22→21:45)
[2021-08-29 09:00] VITALS: BP 129/80
[2021-08-29] MEDS: POTASSIUM CHL 10 Meq TABLET PO SCH (09:31)
[2021-08-29] MEDS: SPIRONOLACTONE 25 MG TAB PO SCH (09:31)
[2021-08-29] MEDS: FUROSEMIDE 40 MG/4 ML VIAL IV SCH (09:32)
[2021-08-29] MEDS: PANTOPRAZOLE 40 MG TAB PO SCH (09:32)
[2021-08-29] MEDS: VENLAFAXINE HCL 37.5mg XR cap PO SCH ×2 (09:32→21:46)
[2021-08-29] MEDS: DAKINS QUARTER STR 0.125% (NaHypochlorite) 473 ML TOPICAL SOL TOP SCH (09:36)
[2021-08-29 13:00] VITALS: BP 132/88
[2021-08-29] MEDS ORDERED: ALBUTEROL SULF 2.5 MG/0.5ML(0.5%) NEB SOLN NEB PRN (14:00)
[2021-08-29 14:30] LABS: Amylase 72 U/L (25-115); Lipase 659 U/L (73-393)
[2021-08-29] MEDS: CLINDAMYCIN 600MG IV 50 ML IV SCH ×2 (14:54→22:11)
[2021-08-29 14:56] VITALS: BP 129/80
[2021-08-29 17:00] VITALS: BP 144/91
[2021-08-29] MEDS: INSULIN LANTUS (GLARGINE) 1 /0.01ml (100units/ml) SC SCH (21:45)
[2021-08-29] MEDS: QUEtiapine FUMARATE 100 MG TAB PO SCH (21:46)
[2021-08-29 22:00] VITALS: BP 129/74
[2021-08-30] MEDS: MORPHINE SULFATE INJ 2 MG/ml SYRG IV PRN ×5 (00:54→22:26)
[2021-08-30] MEDS: DOXYCYCLINE 100MG/250ML 250 ML IV SCH ×2 (03:21→14:58)
[2021-08-30 05:00] VITALS: BP 125/69
[2021-08-30 06:08] LABS: Basophils # (auto) 0 10 ^3/uL (0-0.2); Lymphocytes # (auto) 1.5 10 ^3/uL (0.4-5.4); Monocytes # (auto) 0.8 10 ^3/uL (0-1.3); Nucleated Red Blood Cells % 0.2 %; Red Cell Distribution Width 12.7 % (11.8-14.3)
[2021-08-30] MEDS: InsuLIN REG 1unit/0.01ml Soln (100units/ml) SC SCH ×4 (06:08→22:25)
[2021-08-30] MEDS: SODIUM CHLOR 0.9% PF (SALINE LOCK) 10ML VIAL/SYR IV SCH ×3 (06:09→22:24)
[2021-08-30 06:10] LABS: Basophils % (auto) 0.9 % (0.0-2.0); Eosinophils # (auto) 0.2 10 ^3/uL (0-0.8); Eosinophils % (auto) 4.7 % (0.0-7.0); Hematocrit 39.8 % (41.0-53.0); Hemoglobin 14.3 g/dL (13.5-17.5); Lymphocytes % (auto) 28.8 % (10.0-50.0); Mean Corpuscular Hemoglobin 31.9 pg (28.0-32.0); Mean Corpuscular Hgb Conc. 35.9 g/dL (32.0-36.0); Mean Corpuscular Volume 88.7 fL (80.0-100.0); Monocytes % (auto) 14.7 % (0.0-12.0); Neutrophils # (auto) 2.7 10 ^3/uL (1.6-8.6); Neutrophils % (auto) 50.9 % (37.0-80.0); Red Blood Cells 4.49 10^6/uL (4.5-5.90); White Blood Cell 5.2 10^3/uL (4.4-10.8)
[2021-08-30] MEDS: ACCU-CHEK COMFORT CURVE STRIP VI SCH ×4 (06:19→22:24)
[2021-08-30] MEDS: LACTULOSE 20Gm/30ML SOLN PO SCH ×4 (06:19→18:00)
[2021-08-30] MEDS: CLINDAMYCIN 600MG IV 50 ML IV SCH (06:19)
[2021-08-30 06:29] LABS: Albumin 2.5 g/dL (3.4-5.0); Calcium 8.1 mg/dL (8.5-10.1); Potassium 4.1 mmol/L (3.5-5.1)
[2021-08-30 06:35] LABS: BUN/Creatinine Ratio 9.4; Bilirubin, Total 0.9 mg/dL (0.2-1.0); Total Protein 6.5 g/dL (6.4-8.2)
[2021-08-30 07:06] LABS: Urine Bacteria NONE SEEN /hpf (None Seen); Urine Blood Negative /uL (Negative); Urine Specific Gravity 1.011 (1.001-1.035); Urine WBC 5 /hpf (0 - 3)
[2021-08-30 08:49] VITALS: BP 102/68
[2021-08-30] MEDS: VENLAFAXINE HCL 37.5mg XR cap PO SCH ×2 (09:00→22:24)
[2021-08-30] MEDS: POTASSIUM CHL 10 Meq TABLET PO SCH (09:00)
[2021-08-30] MEDS: PANTOPRAZOLE 40 MG TAB PO SCH (09:01)
[2021-08-30] MEDS: SPIRONOLACTONE 25 MG TAB PO SCH (09:01)
[2021-08-30] MEDS: HYDROcodone-ACET 5/325MG TAB PO PRN (09:02)
[2021-08-30] MEDS: FUROSEMIDE 40 MG/4 ML VIAL IV SCH (09:02)
[2021-08-30 13:25] VITALS: BP 123/82
[2021-08-30] MEDS: DAKINS QUARTER STR 0.125% (NaHypochlorite) 473 ML TOPICAL SOL TOP SCH (16:39)
[2021-08-30 17:00] VITALS: BP 132/81
[2021-08-30] MEDS: QUEtiapine FUMARATE 100 MG TAB PO SCH (22:24)
[2021-08-30] MEDS: INSULIN LANTUS (GLARGINE) 1 /0.01ml (100units/ml) SC SCH (22:25)
[2021-08-30 22:49] VITALS: BP 144/84
[2021-08-31] MEDS: DOXYCYCLINE 100MG/250ML 250 ML IV SCH ×2 (03:16→17:17)
[2021-08-31 05:14] VITALS: BP 138/89
[2021-08-31] MEDS: ACCU-CHEK COMFORT CURVE STRIP VI SCH ×3 (06:33→17:17)
[2021-08-31] MEDS: SODIUM CHLOR 0.9% PF (SALINE LOCK) 10ML VIAL/SYR IV SCH ×2 (06:33→13:36)
[2021-08-31] MEDS: LACTULOSE 20Gm/30ML SOLN PO SCH ×4 (06:33→12:55)
[2021-08-31] MEDS: InsuLIN REG 1unit/0.01ml Soln (100units/ml) SC SCH ×3 (06:37→17:29)
[2021-08-31 08:20] VITALS: BP 120/74
[2021-08-31 09:00] VITALS: BP 120/74
[2021-08-31] MEDS: FUROSEMIDE 40 MG/4 ML VIAL IV SCH (10:17)
[2021-08-31] MEDS: SPIRONOLACTONE 25 MG TAB PO SCH (10:18)
[2021-08-31] MEDS: VENLAFAXINE HCL 37.5mg XR cap PO SCH (10:18)
[2021-08-31] MEDS: PANTOPRAZOLE 40 MG TAB PO SCH (10:19)
[2021-08-31] MEDS: POTASSIUM CHL 10 Meq TABLET PO SCH (10:19)
[2021-08-31] MEDS: MORPHINE SULFATE INJ 2 MG/ml SYRG IV PRN ×2 (10:19→17:26)
[2021-08-31] MEDS: DAKINS QUARTER STR 0.125% (NaHypochlorite) 473 ML TOPICAL SOL TOP SCH (10:20)
[2021-08-31 13:00] VITALS: BP 129/78
[2021-08-31] MEDS ORDERED: SPIR50TA2 PO (14:55)
[2021-08-31] MEDS ORDERED: DOXY-346 PO (14:55)
[2021-08-31] MEDS ORDERED: FURO1TAB31 PO (14:55)
[2021-08-31 17:00] VITALS: BP 128/81
[2021-08-31 18:20] VITALS: BP 128/81
== END 2021-08-31 18:50 | disposition home or self-care (01) | DRG 441 ==
LOC: ER 16:14 → EDBD 16:14 → TELE 22:35 → TELE-WESTW 08-27 13:41 → WEST WING 08-28 22:48
PROVIDERS: ADMIT Nurse Practitioner Family; ATTEND Internal Medicine
DX: K72.90 Hepatic failure, unspecified without coma (principal); J96.21 Acute and chronic respiratory failure with hypoxia; I50.31 Acute diastolic (congestive) heart failure; J18.9 Pneumonia, unspecified organism; R18.8 Other ascites; K76.6 Portal hypertension; E72.4 Disorders of ornithine metabolism; D68.9 Coagulation defect, unspecified; L03.115 Cellulitis of right lower limb; M86.8X7 Other osteomyelitis, ankle and foot; K74.60 Unspecified cirrhosis of liver; D72.829 Elevated white blood cell count, unspecified; E11.69 Type 2 diabetes mellitus with other specified complication; G89.4 Chronic pain syndrome; K42.9 Umbilical hernia without obstruction or gangrene; L08.9 Local infection of the skin and subcutaneous tissue, unspecified; R91.8 Other nonspecific abnormal finding of lung field; E87.6 Hypokalemia; I11.0 Hypertensive heart disease with heart failure; B19.20 Unspecified viral hepatitis C without hepatic coma; F11.10 Opioid abuse, uncomplicated; F31.9 Bipolar disorder, unspecified; Z79.899 Other long term (current) drug therapy; Z90.49 Acquired absence of other specified parts of digestive tract; Z88.0 Allergy status to penicillin; Z88.8 Allergy status to other drugs, medicaments and biological substances; Z72.0 Tobacco use; I86.1 Scrotal varices; Z79.4 Long term (current) use of insulin
CPT/HCPCS: 36415; 71045; 74176; 76705; 80048; 80053; 80307; 81001; 82140; 82150; 82550; 82962; 83605; 83690; 83735; 83880; 84484; 85007; 85025; 85027; 85379; 85610; 85652; 85730; 87040; 87070; 87081; 87205; 93005; 93306; G0378; J0696; J1815; J3490

== ENCOUNTER 2021-09-09 16:21 | Inpatient (IN) | payer OTHER, MEDICAID ==
[~2021-09-09] VITALS: Ht 175.3 cm; Wt 89.8 kg
[~2021-09-09 16:21] MED LIST changes: +FAMO-12 PO; +FURO1TAB31 PO; +LAMO25TA27 PO; +MORP15TA PO; +SPIR50TA2 PO; +TRAM50TA2 PO; +VENL-222 PO
[2021-09-09] MEDS ORDERED: SODIUM CHLORIDE 0.9% 1,000 ML IV ONE ×2 (16:30)
[2021-09-09] MEDS ORDERED: DEXTROSE 10% 1,000 ML IV ONE (16:30)
[2021-09-09 17:48] LABS: Basophils # (auto) 0 10 ^3/uL (0-0.2); Basophils % (auto) 0.5 % (0.0-2.0); Eosinophils # (auto) 0.2 10 ^3/uL (0-0.8); Eosinophils % (auto) 2.4 % (0.0-7.0); Hematocrit 43.1 % (41.0-53.0); Hemoglobin 14.4 g/dL (13.5-17.5); Lymphocytes # (auto) 1.6 10 ^3/uL (0.4-5.4); Lymphocytes % (auto) 18.2 % (10.0-50.0); Mean Corpuscular Hgb Conc. 33.5 g/dL (32.0-36.0); Mean Corpuscular Volume 89.7 fL (80.0-100.0); Monocytes # (auto) 0.8 10 ^3/uL (0-1.3); Monocytes % (auto) 8.8 % (0.0-12.0); Neutrophils # (auto) 6.3 10 ^3/uL (1.6-8.6); Neutrophils % (auto) 70.1 % (37.0-80.0); Nucleated Red Blood Cells % 0.1 %; Red Blood Cells 4.81 10^6/uL (4.5-5.90); Red Cell Distribution Width 12.9 % (11.8-14.3)
[2021-09-09 18:06] LABS: Albumin 3.1 g/dL (3.4-5.0); BUN/Creatinine Ratio 19.6; Calcium 8.7 mg/dL (8.5-10.1); Potassium 4.3 mmol/L (3.5-5.1)
[2021-09-09 18:09] LABS: Bilirubin, Total 0.7 mg/dL (0.2-1.0); Total Protein 6.9 g/dL (6.4-8.2)
[2021-09-09 18:22] LABS: Urine Bacteria NONE SEEN /hpf (None Seen); Urine Blood Negative /uL (Negative); Urine Hyaline Cast FEW /lpf (0 - 2); Urine Mucus FEW (None Seen); Urine Specific Gravity 1.012 (1.001-1.035); Urine WBC 1 /hpf (0 - 3)
[2021-09-09] MEDS ORDERED: DEXTROSE 50% SYRINGE 50 ML IV ONE (19:29)
[2021-09-09] MEDS ORDERED: DEXTROSE (50%) 50ML SYRG IV ONE (19:30)
[2021-09-09] MEDS ORDERED: ONDANSETRON HCL 4 MG/2 ML VIAL IV PRN (20:45)
[2021-09-09] MEDS ORDERED: DOCUSATE SOD 100 MG CAP PO PRN (20:45)
[2021-09-09] MEDS ORDERED: LORazepam 0.5 MG TAB PO PRN (20:45)
[2021-09-09] MEDS ORDERED: ACETAMINOPHEN 325 MG TAB PO PRN (20:45)
[2021-09-09] MEDS ORDERED: DEXTROSE (50%) 50ML SYRG IV PRN (20:45)
[2021-09-09] MEDS: SODIUM CHLORIDE 0.9% 1,000 ML IV SCH (20:51)
[2021-09-09] MEDS ORDERED: QUEtiapine FUMARATE 100 MG TAB PO SCH (22:00)
[2021-09-09] MEDS: FAMOTIDINE 20 MG TAB PO SCH (22:28)
[2021-09-09] MEDS: PROPRANOLOL HCL 20 MG TAB PO SCH (22:28)
[2021-09-10 05:00] VITALS: BP 127/69
[2021-09-10] MEDS ORDERED: DEXTROSE 10% 1,000 ML IV ONE (05:00)
[2021-09-10] MEDS: ACCU-CHEK COMFORT CURVE STRIP VI SCH ×3 (05:45→10:49)
[2021-09-10] MEDS: PROPRANOLOL HCL 20 MG TAB PO SCH ×2 (05:45→16:05)
[2021-09-10 06:49] LABS: Basophils # (auto) 0 10 ^3/uL (0-0.2); Basophils % (auto) 0.5 % (0.0-2.0); Eosinophils # (auto) 0.3 10 ^3/uL (0-0.8); Eosinophils % (auto) 4.1 % (0.0-7.0); Hematocrit 39.1 % (41.0-53.0); Lymphocytes # (auto) 1.4 10 ^3/uL (0.4-5.4); Lymphocytes % (auto) 20.5 % (10.0-50.0); Mean Corpuscular Hemoglobin 32.2 pg (28.0-32.0); Mean Corpuscular Hgb Conc. 35.9 g/dL (32.0-36.0); Mean Corpuscular Volume 89.8 fL (80.0-100.0); Monocytes # (auto) 0.8 10 ^3/uL (0-1.3); Monocytes % (auto) 11.8 % (0.0-12.0); Neutrophils # (auto) 4.3 10 ^3/uL (1.6-8.6); Neutrophils % (auto) 63.1 % (37.0-80.0); Nucleated Red Blood Cells % 0.1 %; Red Blood Cells 4.36 10^6/uL (4.5-5.90); White Blood Cell 6.8 10^3/uL (4.4-10.8)
[2021-09-10 07:05] LABS: BUN/Creatinine Ratio 20.8; Calcium 8.6 mg/dL (8.5-10.1); Potassium 3.8 mmol/L (3.5-5.1)
[2021-09-10 09:00] VITALS: BP 112/71
[2021-09-10] MEDS ORDERED: VENLAFAXINE HYDROCHLORIDE 150 MG PO SCH (10:00)
[2021-09-10] MEDS: FAMOTIDINE 20 MG TAB PO SCH (10:49)
[2021-09-10 13:00] VITALS: BP 135/78
[2021-09-10] MEDS: SODIUM CHLORIDE 0.9% 1,000 ML IV SCH (13:25)
[2021-09-10] MEDS ORDERED: INSLANTI SC (13:57)
[2021-09-10 16:16] VITALS: BP 135/86
== END 2021-09-10 16:40 | disposition home or self-care (01) | DRG 637 ==
LOC: EDUNIT# 16:21 → EDBD 16:21 → ER 16:21 → OVERFLOW 20:31 → EAST 23:00
PROVIDERS: ADMIT Hospitalist; ATTEND Family Medicine
DX: E11.649 Type 2 diabetes mellitus with hypoglycemia without coma (principal); G93.41 Metabolic encephalopathy; Z20.822 Contact with and (suspected) exposure to COVID-19; Z79.4 Long term (current) use of insulin; Z83.3 Family history of diabetes mellitus; Z88.0 Allergy status to penicillin; Z88.8 Allergy status to other drugs, medicaments and biological substances
CPT/HCPCS: 36415; 70450; 71045; 80048; 80053; 81001; 82962; 83605; 84484; 85025; 87040; 87077; 87081; 87186; 93005; 96361; 96374; 99291; G0378

== ENCOUNTER 2021-12-30 17:51 | Inpatient (IN) | payer OTHER, MEDICAID ==
[~2021-12-30] VITALS: Ht 182.9 cm; Wt 98.5 kg
[~2021-12-30 17:51] MED LIST changes: -DOXY-346 PO; -FAMO-12 PO; -FUR20T PO; -INSU100I51 SC; -INSU1INJ19 SC; -MORP15TA PO; -TRAM50TA2 PO
[2021-12-30] MEDS ORDERED: D5W/SOD CHLO 0.9% 1,000 ML IV ONE (18:00)
[2021-12-30] MEDS ORDERED: SUCCINYLCHOLINE CHLORIDE 20 MG/ML 10ML VIAL IV ONE (18:00)
[2021-12-30] MEDS ORDERED: MIDAZOLAM HCL 5 MG/ML-1ML VIAL IV ONE (18:00)
[2021-12-30] MEDS: DEXTROSE (50%) 50ML SYRG IV ONE ×2 (18:05→18:07)
[2021-12-30 18:20] LABS: Urine Bacteria NONE SEEN /hpf (None Seen); Urine Blood Negative /uL (Negative); Urine Mucus FEW (None Seen); Urine Specific Gravity 1.021 (1.001-1.035); Urine WBC 6 /hpf (0 - 3)
[2021-12-30] MEDS ORDERED: MIDAZOLAM DRIP 50 mg/50mL 50 ML IV ONE (18:26)
[2021-12-30] MEDS ORDERED: DEXTROSE 10% 1,000 ML IV ONE (18:30)
[2021-12-30] MEDS: NOREPINEPHRINE 8 MG/250ML KIT 250 ML IV SCH (18:30)
[2021-12-30] MEDS: MIDAZOLAM DRIP 50 mg/50mL 50 ML IV SCH (18:34)
[2021-12-30 18:37] VITALS: BP 112/66
[2021-12-30 18:42] LABS: Basophils # (auto) 0 10 ^3/uL (0-0.2); Basophils % (auto) 0.4 % (0.0-2.0); Eosinophils # (auto) 0.2 10 ^3/uL (0-0.8); Eosinophils % (auto) 3.2 % (0.0-7.0); Lymphocytes # (auto) 1.6 10 ^3/uL (0.4-5.4); Lymphocytes % (auto) 21.6 % (10.0-50.0); Mean Corpuscular Hemoglobin 30.6 pg (28.0-32.0); Mean Corpuscular Hgb Conc. 34.1 g/dL (32.0-36.0); Mean Corpuscular Volume 89.9 fL (80.0-100.0); Monocytes # (auto) 0.9 10 ^3/uL (0-1.3); Monocytes % (auto) 12.3 % (0.0-12.0); Neutrophils # (auto) 4.6 10 ^3/uL (1.6-8.6); Neutrophils % (auto) 62.5 % (37.0-80.0); Nucleated Red Blood Cells % 0.3 %; Red Blood Cells 4.89 10^6/uL (4.5-5.90); Red Cell Distribution Width 14.6 % (11.8-14.3); White Blood Cell 7.3 10^3/uL (4.4-10.8)
[2021-12-30 19:38] LABS: Albumin 3.2 g/dL (3.4-5.0); BUN/Creatinine Ratio 12.5; Calcium 8.3 mg/dL (8.5-10.1); Potassium 3.9 mmol/L (3.5-5.1)
[2021-12-30 19:46] LABS: Bilirubin, Total 0.5 mg/dL (0.2-1.0); Total Protein 6.5 g/dL (6.4-8.2)
[2021-12-30] MEDS ORDERED: levoFLOXacin 500MG 100 ML IV ONE (20:15)
[2021-12-30] MEDS: fentaNYL Drip 2500mCg/250mlNS 250 ML IV SCH (21:01)
[2021-12-30 21:10] VITALS: BP 125/78
[2021-12-30] MEDS ORDERED: NITROGLYCERIN 0.4 MG SL TAB SL PRN (21:45)
[2021-12-30] MEDS ORDERED: PANTOPRAZOLE 40 MG/10 ML VIAL INJ IV ONE (21:45)
[2021-12-30] MEDS ORDERED: SODIUM BICARBONATE 8.4% INJ 50ML SYRINGE ONE (21:57)
[2021-12-30] MEDS ORDERED: SODIUM BICARBONATE 8.4 % INJ 50ML VIAL IV ONE (22:00)
[2021-12-30] MEDS ORDERED: FUROSEMIDE 20 MG/2 ML VIAL IV ONE (22:15)
[2021-12-30] MEDS: SODIUM CHLORIDE 0.9% 1,000 ML IV SCH (23:03)
[2021-12-30] MEDS ORDERED: MIDAZOLAM HCL 2MG/2ML 2ml VIAL (1mg/ml) IV ONE (23:15)
[2021-12-30] MEDS ORDERED: ACETAMINOPHEN 650 MG RECT SUPP PR PRN (23:15)
[2021-12-30 23:22] VITALS: BP 136/76
[2021-12-30] MEDS ORDERED: ACETAMINOPHEN 325 MG RECT SUPP PR PRN (23:45)
[2021-12-30] MEDS: ALBUTEROL SULF 2.5 MG/0.5ML(0.5%) NEB SOLN NEB SCH (23:55)
[2021-12-30] MEDS: IPRATROPIUM BROM 0.5 MG/2.5ML INH SOL NEB SCH (23:56)
[2021-12-31] VITALS (88 sets, daily range): BP systolic 90–129; BP diastolic 50–83
[2021-12-31] MEDS ORDERED: DEXTROSE (50%) 50ML SYRG IV PRN (02:30)
[2021-12-31] MEDS: ACCU-CHEK COMFORT CURVE STRIP VI SCH ×5 (04:10→20:25)
[2021-12-31] MEDS: InsuLIN REG 1unit/0.01ml Soln (100units/ml) SC SCH ×5 (04:17→20:25)
[2021-12-31 04:20] LABS: Basophils # (auto) 0 10 ^3/uL (0-0.2); Basophils % (auto) 0.3 % (0.0-2.0); Eosinophils # (auto) 0 10 ^3/uL (0-0.8); Eosinophils % (auto) 0.6 % (0.0-7.0); Hematocrit 44.5 % (41.0-53.0); Hemoglobin 15.6 g/dL (13.5-17.5); Lymphocytes # (auto) 0.6 10 ^3/uL (0.4-5.4); Mean Corpuscular Hemoglobin 31.4 pg (28.0-32.0); Mean Corpuscular Hgb Conc. 35.1 g/dL (32.0-36.0); Mean Corpuscular Volume 89.5 fL (80.0-100.0); Monocytes # (auto) 0.6 10 ^3/uL (0-1.3); Monocytes % (auto) 8.2 % (0.0-12.0); Neutrophils # (auto) 5.8 10 ^3/uL (1.6-8.6); Neutrophils % (auto) 82.9 % (37.0-80.0); Nucleated Red Blood Cells % 0.3 %; Red Blood Cells 4.97 10^6/uL (4.5-5.90); Red Cell Distribution Width 14.9 % (11.8-14.3); White Blood Cell 6.9 10^3/uL (4.4-10.8)
[2021-12-31 04:38] LABS: Potassium 4.3 mmol/L (3.5-5.1)
[2021-12-31 04:42] LABS: BUN/Creatinine Ratio 13.6; Bilirubin, Total 1.2 mg/dL (0.2-1.0); Total Protein 5.9 g/dL (6.4-8.2)
[2021-12-31] MEDS: ALBUTEROL SULF 2.5 MG/0.5ML(0.5%) NEB SOLN NEB SCH ×3 (06:08→18:05)
[2021-12-31] MEDS: IPRATROPIUM BROM 0.5 MG/2.5ML INH SOL NEB SCH ×3 (06:08→18:05)
[2021-12-31] MEDS: SODIUM CHLORIDE 0.9% 1,000 ML IV SCH ×2 (08:28→19:41)
[2021-12-31] MEDS: MIDAZOLAM DRIP 50 mg/50mL 50 ML IV SCH ×3 (08:29→19:41)
[2021-12-31] MEDS: PANTOPRAZOLE 40 MG/10 ML VIAL INJ IV SCH (10:47)
[2021-12-31] MEDS: methylPREDNISolone SOD SUCC 40 MG/ML VL IV SCH ×2 (10:48→22:02)
[2021-12-31] MEDS: levoFLOXacin 500MG 100 ML IV SCH (10:48)
[2021-12-31] MEDS ORDERED: PROPOFOL 100 ML IV ONE (15:57)
[2021-12-31] MEDS: PROPOFOL 100 ML IV SCH (16:00)
[2021-12-31] MEDS: fentaNYL Drip 2500mCg/250mlNS 250 ML IV SCH (17:21)
[2021-12-31] MEDS: NOREPINEPHRINE 8 MG/250ML KIT 250 ML IV SCH (18:30)
[2022-01-01] VITALS (104 sets, daily range): BP systolic 101–125; BP diastolic 51–67
[2022-01-01] MEDS: ALBUTEROL SULF 2.5 MG/0.5ML(0.5%) NEB SOLN NEB SCH ×4 (00:09→18:30)
[2022-01-01] MEDS: IPRATROPIUM BROM 0.5 MG/2.5ML INH SOL NEB SCH ×4 (00:09→18:30)
[2022-01-01] MEDS: ACCU-CHEK COMFORT CURVE STRIP VI SCH ×7 (00:10→23:42)
[2022-01-01] MEDS: InsuLIN REG 1unit/0.01ml Soln (100units/ml) SC SCH ×7 (00:12→23:41)
[2022-01-01] MEDS: MIDAZOLAM DRIP 50 mg/50mL 50 ML IV SCH ×8 (00:36→21:55)
[2022-01-01] MEDS: PROPOFOL 100 ML IV SCH ×2 (03:21→13:58)
[2022-01-01 04:37] LABS: Basophils # (auto) 0 10 ^3/uL (0-0.2); Eosinophils # (auto) 0 10 ^3/uL (0-0.8); Hematocrit 39.2 % (41.0-53.0); Hemoglobin 13.8 g/dL (13.5-17.5); Lymphocytes # (auto) 0.6 10 ^3/uL (0.4-5.4); Lymphocytes % (auto) 4.4 % (10.0-50.0); Mean Corpuscular Hemoglobin 31.7 pg (28.0-32.0); Mean Corpuscular Hgb Conc. 35.1 g/dL (32.0-36.0); Mean Corpuscular Volume 90.3 fL (80.0-100.0); Monocytes # (auto) 0.3 10 ^3/uL (0-1.3); Neutrophils # (auto) 11.8 10 ^3/uL (1.6-8.6); Neutrophils % (auto) 93.6 % (37.0-80.0); Red Blood Cells 4.35 10^6/uL (4.5-5.90); White Blood Cell 12.6 10^3/uL (4.4-10.8)
[2022-01-01 04:49] LABS: Albumin 2.7 g/dL (3.4-5.0); BUN/Creatinine Ratio 27.8; Calcium 7.4 mg/dL (8.5-10.1); Potassium 4.6 mmol/L (3.5-5.1)
[2022-01-01 04:51] LABS: Bilirubin, Total 0.6 mg/dL (0.2-1.0); Total Protein 5.8 g/dL (6.4-8.2)
[2022-01-01] MEDS: SODIUM CHLORIDE 0.9% 1,000 ML IV SCH ×2 (05:47→13:47)
[2022-01-01] MEDS: fentaNYL Drip 2500mCg/250mlNS 250 ML IV SCH ×2 (05:49→17:44)
[2022-01-01] MEDS: cefTRIAXone 1GM/50ML D5W 50 ML IV SCH (08:33)
[2022-01-01] MEDS: PANTOPRAZOLE 40 MG/10 ML VIAL INJ IV SCH (10:02)
[2022-01-01] MEDS: methylPREDNISolone SOD SUCC 40 MG/ML VL IV SCH ×2 (10:02→21:54)
[2022-01-01] MEDS: levoFLOXacin 500MG 100 ML IV SCH (10:02)
[2022-01-01] MEDS: LACTULOSE 20Gm/30ML SOLN NG SCH ×7 (11:58→23:40)
[2022-01-01] MEDS ORDERED: LACTULOSE 20Gm/30ML SOLN NG SCH (12:00)
[2022-01-01] MEDS: NOREPINEPHRINE 8 MG/250ML KIT 250 ML IV SCH (18:30)
[2022-01-02] VITALS (100 sets, daily range): BP systolic 103–134; BP diastolic 58–94
[2022-01-02] MEDS: PROPOFOL 100 ML IV SCH ×2 (01:53→14:51)
[2022-01-02] MEDS: MIDAZOLAM DRIP 50 mg/50mL 50 ML IV SCH ×3 (01:54→22:07)
[2022-01-02] MEDS: LACTULOSE 20Gm/30ML SOLN NG SCH ×8 (02:00→21:59)
[2022-01-02 03:46] LABS: BUN/Creatinine Ratio 27.4; Potassium 5.3 mmol/L (3.5-5.1)
[2022-01-02 03:49] LABS: Bilirubin, Total 0.5 mg/dL (0.2-1.0); Total Protein 6.3 g/dL (6.4-8.2)
[2022-01-02 04:07] LABS: Basophils # (auto) 0 10 ^3/uL (0-0.2); Basophils % (auto) 0.1 % (0.0-2.0); Eosinophils # (auto) 0 10 ^3/uL (0-0.8); Hemoglobin 14.3 g/dL (13.5-17.5); Lymphocytes # (auto) 0.4 10 ^3/uL (0.4-5.4); Lymphocytes % (auto) 2.8 % (10.0-50.0); Mean Corpuscular Hemoglobin 31.4 pg (28.0-32.0); Mean Corpuscular Hgb Conc. 34.1 g/dL (32.0-36.0); Mean Corpuscular Volume 92.1 fL (80.0-100.0); Monocytes # (auto) 0.5 10 ^3/uL (0-1.3); Monocytes % (auto) 3.6 % (0.0-12.0); Neutrophils # (auto) 11.9 10 ^3/uL (1.6-8.6); Neutrophils % (auto) 93.5 % (37.0-80.0); Red Blood Cells 4.56 10^6/uL (4.5-5.90); White Blood Cell 12.8 10^3/uL (4.4-10.8)
[2022-01-02] MEDS: ACCU-CHEK COMFORT CURVE STRIP VI SCH ×6 (04:37→23:59)
[2022-01-02] MEDS: InsuLIN REG 1unit/0.01ml Soln (100units/ml) SC SCH ×6 (04:38→23:59)
[2022-01-02] MEDS: SODIUM CHLORIDE 0.9% 1,000 ML IV SCH ×3 (04:38→19:45)
[2022-01-02] MEDS: fentaNYL Drip 2500mCg/250mlNS 250 ML IV SCH (04:45)
[2022-01-02] MEDS: ALBUTEROL SULF 2.5 MG/0.5ML(0.5%) NEB SOLN NEB SCH ×3 (05:44→18:16)
[2022-01-02] MEDS: IPRATROPIUM BROM 0.5 MG/2.5ML INH SOL NEB SCH ×3 (05:44→18:16)
[2022-01-02] MEDS: cefTRIAXone 1GM/50ML D5W 50 ML IV SCH (07:56)
[2022-01-02] MEDS ORDERED: DEXTROSE (50%) 50ML SYRG IV PRN (08:30)
[2022-01-02] MEDS: NOREPINEPHRINE 8 MG/250ML KIT 250 ML IV SCH (09:03)
[2022-01-02] MEDS: methylPREDNISolone SOD SUCC 40 MG/ML VL IV SCH ×2 (09:09→21:59)
[2022-01-02] MEDS: PANTOPRAZOLE 40 MG/10 ML VIAL INJ IV SCH (09:09)
[2022-01-02] MEDS: levoFLOXacin 500MG 100 ML IV SCH (09:09)
[2022-01-02] MEDS ORDERED: LIDOCAINE 2%HCL (LOCAL ANESTH.) INJ 20ML MDV ONE (15:46)
[2022-01-02] MEDS ORDERED: EPINEPHrine HCL 1 MG/1 ML AMP ONE (15:46)
[2022-01-02] MEDS ORDERED: SODIUM CHLORIDE LOCK 0 ML ONE (15:46)
[2022-01-02] MEDS ORDERED: GLYCOPYRROLATE 0.2 MG/ML 1ML VIAL ONE (15:46)
[2022-01-02] MEDS: INSULIN LANTUS (GLARGINE) 1 /0.01ml (100units/ml) SC SCH (22:00)
[2022-01-03] VITALS (105 sets, daily range): BP systolic 109–153; BP diastolic 60–83
[2022-01-03] MEDS: ALBUTEROL SULF 2.5 MG/0.5ML(0.5%) NEB SOLN NEB SCH ×4 (00:14→18:10)
[2022-01-03] MEDS: IPRATROPIUM BROM 0.5 MG/2.5ML INH SOL NEB SCH ×4 (00:14→18:10)
[2022-01-03] MEDS: SODIUM CHLORIDE 0.9% 1,000 ML IV SCH ×2 (00:17→12:57)
[2022-01-03] MEDS: LACTULOSE 20Gm/30ML SOLN NG SCH ×6 (01:38→21:31)
[2022-01-03] MEDS: PROPOFOL 100 ML IV SCH ×2 (02:15→21:55)
[2022-01-03] MEDS: MIDAZOLAM DRIP 50 mg/50mL 50 ML IV SCH ×2 (03:15→06:54)
[2022-01-03] MEDS: ACCU-CHEK COMFORT CURVE STRIP VI SCH ×6 (03:58→23:30)
[2022-01-03] MEDS: InsuLIN REG 1unit/0.01ml Soln (100units/ml) SC SCH ×6 (04:00→23:31)
[2022-01-03] MEDS: fentaNYL Drip 2500mCg/250mlNS 250 ML IV SCH (04:18)
[2022-01-03 04:51] LABS: Basophils # (auto) 0 10 ^3/uL (0-0.2); Basophils % (auto) 0.3 % (0.0-2.0); Eosinophils # (auto) 0 10 ^3/uL (0-0.8); Hemoglobin 13.6 g/dL (13.5-17.5); Lymphocytes # (auto) 0.2 10 ^3/uL (0.4-5.4); Lymphocytes % (auto) 2.2 % (10.0-50.0); Mean Corpuscular Hemoglobin 31.3 pg (28.0-32.0); Mean Corpuscular Hgb Conc. 34.1 g/dL (32.0-36.0); Mean Corpuscular Volume 91.9 fL (80.0-100.0); Monocytes # (auto) 0.3 10 ^3/uL (0-1.3); Monocytes % (auto) 2.9 % (0.0-12.0); Neutrophils # (auto) 9.2 10 ^3/uL (1.6-8.6); Neutrophils % (auto) 94.6 % (37.0-80.0); Nucleated Red Blood Cells % 0.1 %; Red Blood Cells 4.35 10^6/uL (4.5-5.90); Red Cell Distribution Width 14.9 % (11.8-14.3); White Blood Cell 9.7 10^3/uL (4.4-10.8)
[2022-01-03 05:20] LABS: Potassium 4.3 mmol/L (3.5-5.1)
[2022-01-03 05:27] LABS: Albumin 2.6 g/dL (3.4-5.0); BUN/Creatinine Ratio 30.2; Bilirubin, Total 0.9 mg/dL (0.2-1.0); Calcium 8.3 mg/dL (8.5-10.1)
[2022-01-03] MEDS: cefTRIAXone 1GM/50ML D5W 50 ML IV SCH (07:43)
[2022-01-03] MEDS: PANTOPRAZOLE 40 MG/10 ML VIAL INJ IV SCH (08:42)
[2022-01-03] MEDS: levoFLOXacin 500MG 100 ML IV SCH (08:42)
[2022-01-03] MEDS: methylPREDNISolone SOD SUCC 40 MG/ML VL IV SCH (08:42)
[2022-01-03] MEDS: DOXYCYCLINE 100MG/250ML 250 ML IV SCH ×2 (09:35→21:31)
[2022-01-03] MEDS: NOREPINEPHRINE 8 MG/250ML KIT 250 ML IV SCH (16:07)
[2022-01-03] MEDS: INSULIN LANTUS (GLARGINE) 1 /0.01ml (100units/ml) SC SCH (21:32)
[2022-01-04] VITALS (100 sets, daily range): BP systolic 101–162; BP diastolic 55–92
[2022-01-04] MEDS: SODIUM CHLORIDE 0.9% 1,000 ML IV SCH ×3 (00:54→09:31)
[2022-01-04] MEDS: LACTULOSE 20Gm/30ML SOLN NG SCH ×6 (01:33→22:00)
[2022-01-04] MEDS: MIDAZOLAM DRIP 50 mg/50mL 50 ML IV SCH (01:33)
[2022-01-04] MEDS: ALBUTEROL SULF 2.5 MG/0.5ML(0.5%) NEB SOLN NEB SCH ×4 (01:55→18:12)
[2022-01-04] MEDS: IPRATROPIUM BROM 0.5 MG/2.5ML INH SOL NEB SCH ×4 (01:55→18:12)
[2022-01-04 03:33] LABS: Basophils # (auto) 0 10 ^3/uL (0-0.2); Basophils % (auto) 0.6 % (0.0-2.0); Eosinophils # (auto) 0 10 ^3/uL (0-0.8); Eosinophils % (auto) 0.1 % (0.0-7.0); Hematocrit 37.7 % (41.0-53.0); Hemoglobin 13.1 g/dL (13.5-17.5); Lymphocytes # (auto) 1.1 10 ^3/uL (0.4-5.4); Lymphocytes % (auto) 17.6 % (10.0-50.0); Mean Corpuscular Hemoglobin 31.4 pg (28.0-32.0); Mean Corpuscular Hgb Conc. 34.8 g/dL (32.0-36.0); Mean Corpuscular Volume 90.3 fL (80.0-100.0); Monocytes # (auto) 0.8 10 ^3/uL (0-1.3); Monocytes % (auto) 12.1 % (0.0-12.0); Neutrophils # (auto) 4.4 10 ^3/uL (1.6-8.6); Neutrophils % (auto) 69.6 % (37.0-80.0); Nucleated Red Blood Cells % 0.1 %; Red Blood Cells 4.18 10^6/uL (4.5-5.90); Red Cell Distribution Width 14.6 % (11.8-14.3); White Blood Cell 6.3 10^3/uL (4.4-10.8)
[2022-01-04] MEDS: ACCU-CHEK COMFORT CURVE STRIP VI SCH ×5 (03:49→20:00)
[2022-01-04] MEDS: InsuLIN REG 1unit/0.01ml Soln (100units/ml) SC SCH ×5 (03:52→20:00)
[2022-01-04 03:53] LABS: Albumin 2.3 g/dL (3.4-5.0); BUN/Creatinine Ratio 21.3; Calcium 7.6 mg/dL (8.5-10.1); Potassium 3.2 mmol/L (3.5-5.1)
[2022-01-04 03:57] LABS: Bilirubin, Total 0.4 mg/dL (0.2-1.0)
[2022-01-04] MEDS: PROPOFOL 100 ML IV SCH ×2 (04:07→15:21)
[2022-01-04] MEDS: cefTRIAXone 1GM/50ML D5W 50 ML IV SCH (07:57)
[2022-01-04] MEDS: PANTOPRAZOLE 40 MG/10 ML VIAL INJ IV SCH (07:57)
[2022-01-04 08:14] LABS: Magnesium 2.2 mg/dL (1.6-2.6)
[2022-01-04] MEDS: DOXYCYCLINE 100MG/250ML 250 ML IV SCH ×2 (08:35→22:00)
[2022-01-04] MEDS ORDERED: POTASSIUM PHOSPHATE 44 MEQ in D5W 5% 250 ML IV ONE (09:00)
[2022-01-04] MEDS ORDERED: POTASSIUM EFFERVESENT TAB 25 MEQ GT ONE (09:15)
[2022-01-04] MEDS ORDERED: rifAMPin 300 MG CAP PO SCH (10:30)
[2022-01-04] MEDS: fentaNYL Drip 2500mCg/250mlNS 250 ML IV SCH (13:34)
[2022-01-04] MEDS: NOREPINEPHRINE 8 MG/250ML KIT 250 ML IV SCH (15:55)
[2022-01-04] MEDS ORDERED: POLYETHYLENE GLYCOL 17 GM PWDR PO ONE (17:15)
[2022-01-04] MEDS: INSULIN LANTUS (GLARGINE) 1 /0.01ml (100units/ml) SC SCH (22:00)
[2022-01-04] MEDS: RIFAXIMIN 550 MG PO SCH (22:00)
[2022-01-05] VITALS (96 sets, daily range): BP systolic 93–160; BP diastolic 31–87
[2022-01-05] MEDS: SODIUM CHLORIDE 0.9% 1,000 ML IV SCH ×2 (01:55→03:47)
[2022-01-05] MEDS: LACTULOSE 20Gm/30ML SOLN NG SCH ×4 (02:00→14:00)
[2022-01-05] MEDS: PROPOFOL 100 ML IV SCH ×4 (02:50→18:06)
[2022-01-05] MEDS: fentaNYL Drip 2500mCg/250mlNS 250 ML IV SCH ×3 (03:49→20:03)
[2022-01-05 03:54] LABS: Basophils # (auto) 0 10 ^3/uL (0-0.2); Basophils % (auto) 0.3 % (0.0-2.0); Eosinophils # (auto) 0.1 10 ^3/uL (0-0.8); Eosinophils % (auto) 1.9 % (0.0-7.0); Hemoglobin 13.6 g/dL (13.5-17.5); Lymphocytes # (auto) 1.4 10 ^3/uL (0.4-5.4); Lymphocytes % (auto) 23.1 % (10.0-50.0); Mean Corpuscular Hemoglobin 31.3 pg (28.0-32.0); Mean Corpuscular Hgb Conc. 34.8 g/dL (32.0-36.0); Monocytes # (auto) 0.4 10 ^3/uL (0-1.3); Monocytes % (auto) 7.2 % (0.0-12.0); Neutrophils # (auto) 4.1 10 ^3/uL (1.6-8.6); Neutrophils % (auto) 67.5 % (37.0-80.0); Nucleated Red Blood Cells % 0.2 %; Red Blood Cells 4.33 10^6/uL (4.5-5.90); Red Cell Distribution Width 14.6 % (11.8-14.3); White Blood Cell 6.1 10^3/uL (4.4-10.8)
[2022-01-05] MEDS: ACCU-CHEK COMFORT CURVE STRIP VI SCH ×6 (04:00→20:27)
[2022-01-05 04:53] LABS: Albumin 2.2 g/dL (3.4-5.0); BUN/Creatinine Ratio 17.8; Calcium 7.3 mg/dL (8.5-10.1); Potassium 3.3 mmol/L (3.5-5.1)
[2022-01-05 04:56] LABS: Total Protein 4.7 g/dL (6.4-8.2)
[2022-01-05] MEDS: InsuLIN REG 1unit/0.01ml Soln (100units/ml) SC SCH ×6 (05:17→20:26)
[2022-01-05] MEDS: ALBUTEROL SULF 2.5 MG/0.5ML(0.5%) NEB SOLN NEB SCH ×3 (06:19→18:27)
[2022-01-05] MEDS: IPRATROPIUM BROM 0.5 MG/2.5ML INH SOL NEB SCH ×3 (06:20→18:27)
[2022-01-05] MEDS: MIDAZOLAM DRIP 50 mg/50mL 50 ML IV SCH ×5 (06:22→23:35)
[2022-01-05 08:05] LABS: Magnesium 1.9 mg/dL (1.6-2.6)
[2022-01-05] MEDS ORDERED: POTASSIUM CHL 20MEQ/100ML 100 ML IV ONE (09:00)
[2022-01-05] MEDS: PANTOPRAZOLE 40 MG/10 ML VIAL INJ IV SCH (09:40)
[2022-01-05] MEDS: cefTRIAXone 1GM/50ML D5W 50 ML IV SCH (09:41)
[2022-01-05] MEDS: DOXYCYCLINE 100MG/250ML 250 ML IV SCH ×2 (10:55→22:51)
[2022-01-05] MEDS: RIFAXIMIN 550 MG PO SCH ×2 (11:03→22:51)
[2022-01-05] MEDS: POTASSIUM CHL 20MEQ/100ML 100 ML IV SCH ×2 (11:51→11:52)
[2022-01-05] MEDS: LACTULOSE 20Gm/30ML SOLN PO SCH ×2 (17:48→18:18)
[2022-01-05] MEDS: INSULIN LANTUS (GLARGINE) 1 /0.01ml (100units/ml) SC SCH (22:52)
[2022-01-06] VITALS (102 sets, daily range): BP systolic 87–144; BP diastolic 50–87
[2022-01-06] MEDS: LACTULOSE 20Gm/30ML SOLN PO SCH ×4 (00:02→17:56)
[2022-01-06] MEDS: InsuLIN REG 1unit/0.01ml Soln (100units/ml) SC SCH ×6 (00:08→20:35)
[2022-01-06] MEDS: ACCU-CHEK COMFORT CURVE STRIP VI SCH ×6 (00:13→20:00)
[2022-01-06] MEDS: PROPOFOL 100 ML IV SCH ×5 (00:31→18:50)
[2022-01-06] MEDS: SODIUM CHLORIDE 0.9% 1,000 ML IV SCH ×2 (00:42→22:40)
[2022-01-06] MEDS: IPRATROPIUM BROM 0.5 MG/2.5ML INH SOL NEB SCH ×4 (01:04→18:38)
[2022-01-06] MEDS: ALBUTEROL SULF 2.5 MG/0.5ML(0.5%) NEB SOLN NEB SCH ×4 (01:04→18:38)
[2022-01-06] MEDS: MIDAZOLAM DRIP 50 mg/50mL 50 ML IV SCH ×4 (03:50→21:15)
[2022-01-06 04:56] LABS: Basophils # (auto) 0 10 ^3/uL (0-0.2); Basophils % (auto) 0.1 % (0.0-2.0); Eosinophils # (auto) 0.3 10 ^3/uL (0-0.8); Hematocrit 40.7 % (41.0-53.0); Hemoglobin 14.7 g/dL (13.5-17.5); Lymphocytes # (auto) 1.5 10 ^3/uL (0.4-5.4); Lymphocytes % (auto) 20.3 % (10.0-50.0); Mean Corpuscular Hemoglobin 31.7 pg (28.0-32.0); Monocytes # (auto) 0.4 10 ^3/uL (0-1.3); Monocytes % (auto) 5.6 % (0.0-12.0); Nucleated Red Blood Cells % 0.1 %; Red Blood Cells 4.63 10^6/uL (4.5-5.90); Red Cell Distribution Width 14.7 % (11.8-14.3); White Blood Cell 7.1 10^3/uL (4.4-10.8)
[2022-01-06 05:14] LABS: Potassium 3.4 mmol/L (3.5-5.1)
[2022-01-06 05:25] LABS: Albumin 2.1 g/dL (3.4-5.0); BUN/Creatinine Ratio 15.8; Bilirubin, Total 0.7 mg/dL (0.2-1.0); Calcium 7.1 mg/dL (8.5-10.1); Total Protein 4.5 g/dL (6.4-8.2)
[2022-01-06 09:11] LABS: Magnesium 1.8 mg/dL (1.6-2.6); Phosphorus 3.2 mg/dL (2.5-4.90)
[2022-01-06] MEDS: cefTRIAXone 1GM/50ML D5W 50 ML IV SCH (09:14)
[2022-01-06] MEDS: POTASSIUM CHL 20MEQ/100ML 100 ML IV SCH ×2 (09:30→11:41)
[2022-01-06] MEDS: RIFAXIMIN 550 MG PO SCH ×2 (10:19→21:38)
[2022-01-06] MEDS: DOXYCYCLINE 100MG/250ML 250 ML IV SCH (10:19)
[2022-01-06] MEDS: PANTOPRAZOLE 40 MG/10 ML VIAL INJ IV SCH (10:19)
[2022-01-06] MEDS: MAGNESIUM SULFATE 1GM/100ML 100 ML IV SCH ×3 (14:01→15:42)
[2022-01-06] MEDS ORDERED: levoFLOXacin 750MG 150 ML IV ONE (15:00)
[2022-01-06] MEDS: fentaNYL Drip 2500mCg/250mlNS 250 ML IV SCH (16:13)
[2022-01-06] MEDS: NOREPINEPHRINE 8 MG/250ML KIT 250 ML IV SCH (18:14)
[2022-01-06] MEDS: INSULIN LANTUS (GLARGINE) 1 /0.01ml (100units/ml) SC SCH (21:45)
[2022-01-07] VITALS (94 sets, daily range): BP systolic 87–133; BP diastolic 44–83
[2022-01-07] MEDS: PROPOFOL 100 ML IV SCH ×5 (00:17→20:51)
[2022-01-07] MEDS: IPRATROPIUM BROM 0.5 MG/2.5ML INH SOL NEB SCH ×4 (01:06→17:41)
[2022-01-07] MEDS: ALBUTEROL SULF 2.5 MG/0.5ML(0.5%) NEB SOLN NEB SCH ×4 (01:06→17:41)
[2022-01-07] MEDS: MIDAZOLAM DRIP 50 mg/50mL 50 ML IV SCH ×5 (01:21→20:52)
[2022-01-07 03:42] LABS: Basophils # (auto) 0 10 ^3/uL (0-0.2); Basophils % (auto) 0.2 % (0.0-2.0); Eosinophils # (auto) 0.4 10 ^3/uL (0-0.8); Eosinophils % (auto) 5.9 % (0.0-7.0); Hemoglobin 14.6 g/dL (13.5-17.5); Lymphocytes # (auto) 1.1 10 ^3/uL (0.4-5.4); Lymphocytes % (auto) 17.4 % (10.0-50.0); Mean Corpuscular Hemoglobin 31.2 pg (28.0-32.0); Mean Corpuscular Hgb Conc. 35.6 g/dL (32.0-36.0); Mean Corpuscular Volume 87.4 fL (80.0-100.0); Monocytes # (auto) 0.4 10 ^3/uL (0-1.3); Monocytes % (auto) 7.1 % (0.0-12.0); Neutrophils # (auto) 4.3 10 ^3/uL (1.6-8.6); Neutrophils % (auto) 69.4 % (37.0-80.0); Nucleated Red Blood Cells % 0.2 %; Red Blood Cells 4.69 10^6/uL (4.5-5.90); Red Cell Distribution Width 14.5 % (11.8-14.3); White Blood Cell 6.2 10^3/uL (4.4-10.8)
[2022-01-07 03:59] LABS: Albumin 1.9 g/dL (3.4-5.0); Calcium 7.3 mg/dL (8.5-10.1); Potassium 3.8 mmol/L (3.5-5.1)
[2022-01-07] MEDS: ACCU-CHEK COMFORT CURVE STRIP VI SCH ×6 (04:00→20:22)
[2022-01-07] MEDS: InsuLIN REG 1unit/0.01ml Soln (100units/ml) SC SCH ×6 (04:00→20:00)
[2022-01-07 04:03] LABS: BUN/Creatinine Ratio 20.8; Bilirubin, Total 0.8 mg/dL (0.2-1.0); Total Protein 4.5 g/dL (6.4-8.2)
[2022-01-07] MEDS: LACTULOSE 20Gm/30ML SOLN PO SCH ×4 (05:59→18:00)
[2022-01-07] MEDS: RIFAXIMIN 550 MG PO SCH ×2 (09:53→22:15)
[2022-01-07] MEDS: PANTOPRAZOLE 40 MG/10 ML VIAL INJ IV SCH (09:53)
[2022-01-07] MEDS: levoFLOXacin 750MG 150 ML IV SCH (09:54)
[2022-01-07] MEDS: fentaNYL Drip 2500mCg/250mlNS 250 ML IV SCH (11:49)
[2022-01-07] MEDS: NOREPINEPHRINE 8 MG/250ML KIT 250 ML IV SCH (18:30)
[2022-01-07] MEDS: SODIUM CHLORIDE 0.9% 1,000 ML IV SCH (20:42)
[2022-01-07] MEDS: INSULIN LANTUS (GLARGINE) 1 /0.01ml (100units/ml) SC SCH (22:00)
[2022-01-08] VITALS (97 sets, daily range): BP systolic 87–130; BP diastolic 47–77
[2022-01-08] MEDS: LACTULOSE 20Gm/30ML SOLN PO SCH ×4 (00:03→17:41)
[2022-01-08] MEDS: ACCU-CHEK COMFORT CURVE STRIP VI SCH ×4 (00:03→17:41)
[2022-01-08 04:18] LABS: Basophils # (auto) 0 10 ^3/uL (0-0.2); Basophils % (auto) 0.6 % (0.0-2.0); Eosinophils # (auto) 0.3 10 ^3/uL (0-0.8); Eosinophils % (auto) 4.3 % (0.0-7.0); Hematocrit 41.1 % (41.0-53.0); Hemoglobin 14.7 g/dL (13.5-17.5); Lymphocytes % (auto) 15.5 % (10.0-50.0); Mean Corpuscular Hemoglobin 31.4 pg (28.0-32.0); Mean Corpuscular Hgb Conc. 35.8 g/dL (32.0-36.0); Mean Corpuscular Volume 87.7 fL (80.0-100.0); Monocytes # (auto) 0.5 10 ^3/uL (0-1.3); Monocytes % (auto) 8.4 % (0.0-12.0); Neutrophils # (auto) 4.5 10 ^3/uL (1.6-8.6); Neutrophils % (auto) 71.2 % (37.0-80.0); Nucleated Red Blood Cells % 0.1 %; Red Blood Cells 4.68 10^6/uL (4.5-5.90); Red Cell Distribution Width 14.5 % (11.8-14.3); White Blood Cell 6.3 10^3/uL (4.4-10.8)
[2022-01-08 04:44] LABS: Albumin 1.9 g/dL (3.4-5.0); Calcium 7.6 mg/dL (8.5-10.1); Potassium 4.6 mmol/L (3.5-5.1)
[2022-01-08] MEDS: InsuLIN REG 1unit/0.01ml Soln (100units/ml) SC SCH ×5 (04:48→17:42)
[2022-01-08 04:54] LABS: BUN/Creatinine Ratio 14.3; Total Protein 4.8 g/dL (6.4-8.2)
[2022-01-08] MEDS: ALBUTEROL SULF 2.5 MG/0.5ML(0.5%) NEB SOLN NEB SCH ×4 (05:46→18:02)
[2022-01-08] MEDS: IPRATROPIUM BROM 0.5 MG/2.5ML INH SOL NEB SCH ×4 (05:46→18:02)
[2022-01-08] MEDS: fentaNYL Drip 2500mCg/250mlNS 250 ML IV SCH ×2 (07:47→22:05)
[2022-01-08] MEDS ORDERED: DEXTROSE (50%) 50ML SYRG IV PRN (09:00)
[2022-01-08] MEDS: PANTOPRAZOLE 40 MG/10 ML VIAL INJ IV SCH (09:49)
[2022-01-08] MEDS: RIFAXIMIN 550 MG PO SCH ×2 (09:49→22:02)
[2022-01-08] MEDS: levoFLOXacin 750MG 150 ML IV SCH (09:49)
[2022-01-08] MEDS: PROPOFOL 100 ML IV SCH ×2 (11:30→22:06)
[2022-01-08] MEDS: SODIUM CHLORIDE 0.9% 1,000 ML IV SCH (13:44)
[2022-01-08] MEDS: NOREPINEPHRINE 8 MG/250ML KIT 250 ML IV SCH (13:45)
[2022-01-08] MEDS: INSULIN LANTUS (GLARGINE) 1 /0.01ml (100units/ml) SC SCH (22:00)
[2022-01-09] VITALS (57 sets, daily range): BP systolic 87–154; BP diastolic 41–87
[2022-01-09] MEDS: ALBUTEROL SULF 2.5 MG/0.5ML(0.5%) NEB SOLN NEB SCH ×5 (00:06→23:51)
[2022-01-09] MEDS: IPRATROPIUM BROM 0.5 MG/2.5ML INH SOL NEB SCH ×5 (00:07→23:51)
[2022-01-09] MEDS: LACTULOSE 20Gm/30ML SOLN PO SCH ×4 (00:37→17:54)
[2022-01-09] MEDS: ACCU-CHEK COMFORT CURVE STRIP VI SCH ×4 (00:47→17:54)
[2022-01-09] MEDS: SODIUM CHLORIDE 0.9% 1,000 ML IV SCH ×2 (01:12→19:02)
[2022-01-09] MEDS: PROPOFOL 100 ML IV SCH (03:39)
[2022-01-09 04:14] LABS: Basophils # (auto) 0 10 ^3/uL (0-0.2); Basophils % (auto) 0.6 % (0.0-2.0); Eosinophils # (auto) 0.2 10 ^3/uL (0-0.8); Eosinophils % (auto) 3.2 % (0.0-7.0); Hematocrit 39.9 % (41.0-53.0); Hemoglobin 14.1 g/dL (13.5-17.5); Lymphocytes # (auto) 1.3 10 ^3/uL (0.4-5.4); Lymphocytes % (auto) 15.9 % (10.0-50.0); Mean Corpuscular Hemoglobin 30.9 pg (28.0-32.0); Mean Corpuscular Hgb Conc. 35.3 g/dL (32.0-36.0); Mean Corpuscular Volume 87.5 fL (80.0-100.0); Monocytes # (auto) 0.6 10 ^3/uL (0-1.3); Monocytes % (auto) 7.7 % (0.0-12.0); Neutrophils # (auto) 5.7 10 ^3/uL (1.6-8.6); Neutrophils % (auto) 72.6 % (37.0-80.0); Nucleated Red Blood Cells % 0.1 %; Red Blood Cells 4.56 10^6/uL (4.5-5.90); Red Cell Distribution Width 14.3 % (11.8-14.3); White Blood Cell 7.9 10^3/uL (4.4-10.8)
[2022-01-09 05:01] LABS: BUN/Creatinine Ratio 15.8; Calcium 7.8 mg/dL (8.5-10.1); Potassium 3.9 mmol/L (3.5-5.1)
[2022-01-09 05:04] LABS: Bilirubin, Total 0.9 mg/dL (0.2-1.0); Total Protein 4.8 g/dL (6.4-8.2)
[2022-01-09] MEDS: InsuLIN REG 1unit/0.01ml Soln (100units/ml) SC SCH ×4 (05:42→17:55)
[2022-01-09] MEDS: RIFAXIMIN 550 MG PO SCH ×2 (09:39→22:22)
[2022-01-09] MEDS: levoFLOXacin 750MG 150 ML IV SCH (09:39)
[2022-01-09] MEDS: PANTOPRAZOLE 40 MG/10 ML VIAL INJ IV SCH (09:39)
[2022-01-09] MEDS: NOREPINEPHRINE 8 MG/250ML KIT 250 ML IV SCH (11:42)
[2022-01-09] MEDS: INSULIN LANTUS (GLARGINE) 1 /0.01ml (100units/ml) SC SCH (22:00)
[2022-01-09] MEDS ORDERED: GABAPENTIN 100 MG CAP PO ONE (23:15)
[2022-01-10] VITALS (21 sets, daily range): BP systolic 106–145; BP diastolic 63–79
[2022-01-10] MEDS: LACTULOSE 20Gm/30ML SOLN PO SCH ×4 (00:11→18:00)
[2022-01-10] MEDS: ACCU-CHEK COMFORT CURVE STRIP VI SCH ×4 (00:11→18:00)
[2022-01-10] MEDS: MORPHINE SULFATE INJ 2 MG/ml SYRG IV PRN ×2 (00:12→08:00)
[2022-01-10] MEDS: InsuLIN REG 1unit/0.01ml Soln (100units/ml) SC SCH ×4 (00:22→18:00)
[2022-01-10] MEDS ORDERED: TEMAZEPAM 15 MG CAP PO ONE (01:00)
[2022-01-10 04:52] LABS: Basophils # (auto) 0.1 10 ^3/uL (0-0.2); Basophils % (auto) 1.6 % (0.0-2.0); Eosinophils # (auto) 0.1 10 ^3/uL (0-0.8); Eosinophils % (auto) 1.3 % (0.0-7.0); Hematocrit 38.8 % (41.0-53.0); Lymphocytes # (auto) 1.4 10 ^3/uL (0.4-5.4); Lymphocytes % (auto) 18.5 % (10.0-50.0); Mean Corpuscular Hgb Conc. 36.1 g/dL (32.0-36.0); Monocytes # (auto) 0.8 10 ^3/uL (0-1.3); Monocytes % (auto) 9.9 % (0.0-12.0); Neutrophils # (auto) 5.2 10 ^3/uL (1.6-8.6); Neutrophils % (auto) 68.7 % (37.0-80.0); Nucleated Red Blood Cells % 0.1 %; Red Blood Cells 4.51 10^6/uL (4.5-5.90); White Blood Cell 7.6 10^3/uL (4.4-10.8)
[2022-01-10 05:04] LABS: Albumin 2.1 g/dL (3.4-5.0); BUN/Creatinine Ratio 9.8; Calcium 7.7 mg/dL (8.5-10.1); Potassium 3.2 mmol/L (3.5-5.1)
[2022-01-10 05:06] LABS: Bilirubin, Total 1.4 mg/dL (0.2-1.0); Total Protein 4.8 g/dL (6.4-8.2)
[2022-01-10] MEDS: ALBUTEROL SULF 2.5 MG/0.5ML(0.5%) NEB SOLN NEB SCH ×3 (06:29→19:29)
[2022-01-10] MEDS: IPRATROPIUM BROM 0.5 MG/2.5ML INH SOL NEB SCH ×3 (06:29→19:29)
[2022-01-10 08:01] LABS: Magnesium 1.2 mg/dL (1.6-2.6); Phosphorus 2.7 mg/dL (2.5-4.90)
[2022-01-10] MEDS: PANTOPRAZOLE 40 MG/10 ML VIAL INJ IV SCH (09:22)
[2022-01-10] MEDS: RIFAXIMIN 550 MG PO SCH ×2 (09:22→21:54)
[2022-01-10] MEDS: levoFLOXacin 750MG 150 ML IV SCH (09:23)
[2022-01-10] MEDS: SODIUM CHLORIDE 0.9% 1,000 ML IV SCH (11:57)
[2022-01-10] MEDS: POTASSIUM CHL 20MEQ/100ML 100 ML IV SCH ×2 (11:58→13:00)
[2022-01-10] MEDS: ALPRAZolam 0.5 MG TAB PO PRN (11:58)
[2022-01-10] MEDS: MAGNESIUM SULFATE 1GM/100ML 100 ML IV SCH ×4 (11:58→13:00)
[2022-01-10] MEDS: HYDROcodone-ACET 10/325MG TAB PO PRN ×2 (16:19→22:04)
[2022-01-10] MEDS: LORazepam 2MG/ML-1ML VIAL IV PRN ×2 (16:35→16:36)
[2022-01-10] MEDS: NOREPINEPHRINE 8 MG/250ML KIT 250 ML IV SCH (18:30)
[2022-01-10] MEDS: QUEtiapine FUMARATE 100 MG TAB PO SCH ×2 (19:38→20:27)
[2022-01-10] MEDS: PROPRANOLOL HCL 20 MG TAB PO SCH (21:55)
[2022-01-10] MEDS ORDERED: PATIENTS OWN MEDICATION (Quetiapine Fumerate (Quetiapine Fumarate) 1 TAB) PO SCH (22:00)
[2022-01-10] MEDS: INSULIN LANTUS (GLARGINE) 1 /0.01ml (100units/ml) SC SCH (22:01)
[2022-01-11] VITALS (7 sets, daily range): BP systolic 116–134; BP diastolic 70–86
[2022-01-11] MEDS: ALBUTEROL SULF 2.5 MG/0.5ML(0.5%) NEB SOLN NEB SCH ×4 (00:08→19:13)
[2022-01-11] MEDS: IPRATROPIUM BROM 0.5 MG/2.5ML INH SOL NEB SCH ×4 (00:08→19:13)
[2022-01-11] MEDS: LACTULOSE 20Gm/30ML SOLN PO SCH ×5 (00:29→18:00)
[2022-01-11] MEDS: LORazepam 2MG/ML-1ML VIAL IV PRN (00:30)
[2022-01-11] MEDS ORDERED: POTASSIUM CHL 20MEQ/100ML 100 ML IV ONE (01:00)
[2022-01-11] MEDS: HYDROcodone-ACET 10/325MG TAB PO PRN (04:32)
[2022-01-11] MEDS: SPIRONOLACTONE 25 MG TAB PO SCH (05:57)
[2022-01-11] MEDS: FUROSEMIDE 40 MG TAB PO SCH (05:59)
[2022-01-11] MEDS: PROPRANOLOL HCL 20 MG TAB PO SCH ×3 (06:01→21:12)
[2022-01-11] MEDS: ACCU-CHEK COMFORT CURVE STRIP VI SCH ×5 (06:02→23:04)
[2022-01-11] MEDS: InsuLIN REG 1unit/0.01ml Soln (100units/ml) SC SCH ×5 (06:11→23:04)
[2022-01-11 07:00] LABS: Basophils # (auto) 0.1 10 ^3/uL (0-0.2); Basophils % (auto) 1.2 % (0.0-2.0); Eosinophils # (auto) 0.2 10 ^3/uL (0-0.8); Eosinophils % (auto) 3.9 % (0.0-7.0); Hematocrit 37.3 % (41.0-53.0); Hemoglobin 13.5 g/dL (13.5-17.5); Lymphocytes # (auto) 1.7 10 ^3/uL (0.4-5.4); Mean Corpuscular Hemoglobin 31.3 pg (28.0-32.0); Mean Corpuscular Hgb Conc. 36.1 g/dL (32.0-36.0); Mean Corpuscular Volume 86.6 fL (80.0-100.0); Monocytes # (auto) 0.9 10 ^3/uL (0-1.3); Monocytes % (auto) 14.3 % (0.0-12.0); Neutrophils # (auto) 3.3 10 ^3/uL (1.6-8.6); Neutrophils % (auto) 53.6 % (37.0-80.0); Red Blood Cells 4.31 10^6/uL (4.5-5.90); Red Cell Distribution Width 13.8 % (11.8-14.3); White Blood Cell 6.2 10^3/uL (4.4-10.8)
[2022-01-11] MEDS ORDERED: SPIRONOLACTONE 25 MG TAB PO SCH ×2 (07:00→10:00)
[2022-01-11 07:01] LABS: Albumin 2.2 g/dL (3.4-5.0); Calcium 8.1 mg/dL (8.5-10.1); Potassium 3.3 mmol/L (3.5-5.1)
[2022-01-11 07:06] LABS: BUN/Creatinine Ratio 11.8; Total Protein 4.8 g/dL (6.4-8.2)
[2022-01-11] MEDS: VENLAFAXINE HCL 37.5mg XR cap PO SCH (09:24)
[2022-01-11] MEDS: PANTOPRAZOLE 40 MG/10 ML VIAL INJ IV SCH (09:25)
[2022-01-11] MEDS: RIFAXIMIN 550 MG PO SCH ×2 (09:25→21:12)
[2022-01-11] MEDS: lamoTRIgine 25 MG TAB PO SCH (09:25)
[2022-01-11] MEDS: ALPRAZolam 0.5 MG TAB PO PRN (09:25)
[2022-01-11] MEDS: levoFLOXacin 750MG 150 ML IV SCH (09:25)
[2022-01-11 09:34] LABS: Magnesium 1.8 mg/dL (1.6-2.6); Phosphorus 2.4 mg/dL (2.5-4.90)
[2022-01-11] MEDS: SODIUM CHLORIDE 0.9% 1,000 ML IV SCH ×2 (12:00→23:49)
[2022-01-11] MEDS: QUEtiapine FUMARATE 100 MG TAB PO SCH (21:12)
[2022-01-11] MEDS: INSULIN LANTUS (GLARGINE) 1 /0.01ml (100units/ml) SC SCH (23:03)
[2022-01-12] MEDS: LACTULOSE 20Gm/30ML SOLN PO SCH ×5 (00:15→23:19)
[2022-01-12] MEDS: ALBUTEROL SULF 2.5 MG/0.5ML(0.5%) NEB SOLN NEB SCH ×5 (00:31→23:51)
[2022-01-12] MEDS: IPRATROPIUM BROM 0.5 MG/2.5ML INH SOL NEB SCH ×5 (00:31→23:51)
[2022-01-12 05:08] VITALS: BP 133/76
[2022-01-12] MEDS: ACCU-CHEK COMFORT CURVE STRIP VI SCH ×4 (05:09→23:20)
[2022-01-12] MEDS: InsuLIN REG 1unit/0.01ml Soln (100units/ml) SC SCH ×4 (05:10→23:24)
[2022-01-12] MEDS: PROPRANOLOL HCL 20 MG TAB PO SCH ×3 (05:10→22:27)
[2022-01-12] MEDS: SPIRONOLACTONE 25 MG TAB PO SCH (06:00)
[2022-01-12] MEDS: FUROSEMIDE 40 MG TAB PO SCH (06:01)
[2022-01-12 06:53] LABS: Basophils # (auto) 0.1 10 ^3/uL (0-0.2); Basophils % (auto) 1.2 % (0.0-2.0); Eosinophils # (auto) 0.2 10 ^3/uL (0-0.8); Eosinophils % (auto) 4.6 % (0.0-7.0); Hematocrit 38.7 % (41.0-53.0); Hemoglobin 13.7 g/dL (13.5-17.5); Lymphocytes # (auto) 1.2 10 ^3/uL (0.4-5.4); Lymphocytes % (auto) 22.4 % (10.0-50.0); Mean Corpuscular Hgb Conc. 35.3 g/dL (32.0-36.0); Mean Corpuscular Volume 87.8 fL (80.0-100.0); Monocytes # (auto) 0.6 10 ^3/uL (0-1.3); Monocytes % (auto) 11.4 % (0.0-12.0); Neutrophils # (auto) 3.1 10 ^3/uL (1.6-8.6); Neutrophils % (auto) 60.4 % (37.0-80.0); Nucleated Red Blood Cells % 0.1 %; Red Blood Cells 4.41 10^6/uL (4.5-5.90); Red Cell Distribution Width 14.1 % (11.8-14.3); White Blood Cell 5.1 10^3/uL (4.4-10.8)
[2022-01-12 09:00] VITALS: BP 141/74
[2022-01-12 09:10] LABS: Albumin 2.3 g/dL (3.4-5.0); Calcium 8.1 mg/dL (8.5-10.1); Potassium 3.4 mmol/L (3.5-5.1)
[2022-01-12 09:14] LABS: BUN/Creatinine Ratio 7.9; Bilirubin, Total 0.9 mg/dL (0.2-1.0); Total Protein 5.5 g/dL (6.4-8.2)
[2022-01-12] MEDS: levoFLOXacin 750MG 150 ML IV SCH (09:43)
[2022-01-12] MEDS: PANTOPRAZOLE 40 MG TAB PO SCH (09:44)
[2022-01-12] MEDS: VENLAFAXINE HCL 37.5mg XR cap PO SCH (09:44)
[2022-01-12] MEDS: RIFAXIMIN 550 MG PO SCH ×2 (09:44→22:27)
[2022-01-12] MEDS: lamoTRIgine 25 MG TAB PO SCH (09:44)
[2022-01-12 12:54] VITALS: BP 121/85
[2022-01-12] MEDS: ALPRAZolam 0.5 MG TAB PO PRN (13:03)
[2022-01-12] MEDS ORDERED: LEVO500T31 PO (14:46)
[2022-01-12] MEDS ORDERED: RIFA550T PO (14:46)
[2022-01-12] MEDS ORDERED: SPIR25TA8 PO (14:49)
[2022-01-12] MEDS ORDERED: LACT10PA2 PO (14:49)
[2022-01-12 16:59] VITALS: BP 135/67
[2022-01-12] MEDS: SODIUM CHLORIDE 0.9% 1,000 ML IV SCH (17:13)
[2022-01-12 22:00] VITALS: BP_SYST 113; BP_SYST 139; BP_DIAS 77; BP_DIAS 80
[2022-01-12] MEDS: QUEtiapine FUMARATE 100 MG TAB PO SCH (22:27)
[2022-01-12] MEDS: INSULIN LANTUS (GLARGINE) 1 /0.01ml (100units/ml) SC SCH (22:28)
[2022-01-13 05:00] VITALS: BP 108/65
[2022-01-13] MEDS: LACTULOSE 20Gm/30ML SOLN PO SCH ×2 (05:37→12:00)
[2022-01-13] MEDS: ACCU-CHEK COMFORT CURVE STRIP VI SCH ×2 (05:37→12:16)
[2022-01-13] MEDS: InsuLIN REG 1unit/0.01ml Soln (100units/ml) SC SCH ×2 (05:37→12:14)
[2022-01-13] MEDS: IPRATROPIUM BROM 0.5 MG/2.5ML INH SOL NEB SCH ×2 (06:00→11:39)
[2022-01-13] MEDS: ALBUTEROL SULF 2.5 MG/0.5ML(0.5%) NEB SOLN NEB SCH ×2 (06:00→11:40)
[2022-01-13] MEDS: PROPRANOLOL HCL 20 MG TAB PO SCH ×2 (06:02→15:04)
[2022-01-13] MEDS: SPIRONOLACTONE 25 MG TAB PO SCH (06:40)
[2022-01-13] MEDS: FUROSEMIDE 40 MG TAB PO SCH (06:40)
[2022-01-13 06:43] LABS: Basophils # (auto) 0.1 10 ^3/uL (0-0.2); Basophils % (auto) 1.4 % (0.0-2.0); Eosinophils # (auto) 0.3 10 ^3/uL (0-0.8); Eosinophils % (auto) 5.5 % (0.0-7.0); Hematocrit 37.5 % (41.0-53.0); Hemoglobin 13.5 g/dL (13.5-17.5); Lymphocytes # (auto) 1.7 10 ^3/uL (0.4-5.4); Lymphocytes % (auto) 36.2 % (10.0-50.0); Mean Corpuscular Hemoglobin 31.3 pg (28.0-32.0); Mean Corpuscular Volume 86.9 fL (80.0-100.0); Monocytes # (auto) 0.6 10 ^3/uL (0-1.3); Monocytes % (auto) 13.7 % (0.0-12.0); Neutrophils # (auto) 2.1 10 ^3/uL (1.6-8.6); Neutrophils % (auto) 43.2 % (37.0-80.0); Nucleated Red Blood Cells % 0.4 %; Red Blood Cells 4.31 10^6/uL (4.5-5.90); Red Cell Distribution Width 13.8 % (11.8-14.3); White Blood Cell 4.8 10^3/uL (4.4-10.8)
[2022-01-13 07:05] LABS: Albumin 2.4 g/dL (3.4-5.0); BUN/Creatinine Ratio 7.3; Bilirubin, Total 1.2 mg/dL (0.2-1.0); Calcium 7.9 mg/dL (8.5-10.1); Total Protein 4.9 g/dL (6.4-8.2)
[2022-01-13 09:00] VITALS: BP 114/68
[2022-01-13] MEDS: PANTOPRAZOLE 40 MG TAB PO SCH (10:18)
[2022-01-13] MEDS: lamoTRIgine 25 MG TAB PO SCH (10:18)
[2022-01-13] MEDS: levoFLOXacin 750MG 150 ML IV SCH (10:18)
[2022-01-13] MEDS: RIFAXIMIN 550 MG PO SCH (10:18)
[2022-01-13] MEDS: VENLAFAXINE HCL 37.5mg XR cap PO SCH (10:19)
[2022-01-13] MEDS: SODIUM CHLORIDE 0.9% 1,000 ML IV SCH ×3 (10:24→12:15)
[2022-01-13 13:00] VITALS: BP 150/88
== END 2022-01-13 15:40 | DRG 870 ==
LOC: EDBD 17:51 → ER 17:51 → TELE 21:37 → ICU WEST 12-31 05:00 → TELE-WESTW 01-11 01:46
PROVIDERS: ADMIT Nurse Practitioner Family; ATTEND Internal Medicine
PROC: 0BH18EZ Insertion of Endotracheal Airway into Trachea, Via Natural or Artificial Opening Endoscopic (ICD-10-PCS; principal; 2021-12-30)
PROC: 5A1955Z Respiratory Ventilation, Greater than 96 Consecutive Hours (ICD-10-PCS; 2021-12-30)
PROC: 05HD33Z Insertion of Infusion Device into Right Cephalic Vein, Percutaneous Approach (ICD-10-PCS; 2021-12-30)
PROC: B54MZZA Ultrasonography of Right Upper Extremity Veins, Guidance (ICD-10-PCS; 2021-12-30)
PROC: 0B918ZZ Drainage of Trachea, Via Natural or Artificial Opening Endoscopic (ICD-10-PCS; 2022-01-02)
DX: A41.9 Sepsis, unspecified organism (principal); J18.9 Pneumonia, unspecified organism; G93.41 Metabolic encephalopathy; N18.6 End stage renal disease; J96.21 Acute and chronic respiratory failure with hypoxia; R65.21 Severe sepsis with septic shock; E46 Unspecified protein-calorie malnutrition; E87.20 Acidosis, unspecified; J98.11 Atelectasis; N39.0 Urinary tract infection, site not specified; E11.649 Type 2 diabetes mellitus with hypoglycemia without coma; I49.8 Other specified cardiac arrhythmias; Z20.822 Contact with and (suspected) exposure to COVID-19; K74.60 Unspecified cirrhosis of liver; K76.82 Hepatic encephalopathy; B19.20 Unspecified viral hepatitis C without hepatic coma; B96.1 Klebsiella pneumoniae [K. pneumoniae] as the cause of diseases classified elsewhere; F41.9 Anxiety disorder, unspecified; R65.20 Severe sepsis without septic shock; F17.200 Nicotine dependence, unspecified, uncomplicated; K72.90 Hepatic failure, unspecified without coma; E88.09 Other disorders of plasma-protein metabolism, not elsewhere classified; Z88.0 Allergy status to penicillin; Z88.8 Allergy status to other drugs, medicaments and biological substances; Z91.51 Personal history of suicidal behavior; Z83.3 Family history of diabetes mellitus; Z79.899 Other long term (current) drug therapy; Z79.4 Long term (current) use of insulin; Z68.28 Body mass index [BMI] 28.0-28.9, adult
CPT/HCPCS: 31500; 31645; 36415; 36600; 71045; 76604; 80053; 81001; 82140; 82805; 82962; 83605; 83735; 83880; 84100; 84132; 84484; 85025; 87040; 87070; 87077; 87081; 87186; 87205; 87426; 93005; 94003; 94640; 96361; 96374; 99291; C9113; G0378; J0171; J0330; J0696; J1815; J1956; J2250; J2704; J3480; J3490; J7042; J7060

== ENCOUNTER 2022-03-23 18:40 | Inpatient (IN) | payer OTHER ==
[~2022-03-23] VITALS: Ht 185.4 cm; Wt 98.6 kg
[~2022-03-23 18:40] MED LIST changes: +LACT10PA2 PO; +LEVO500T31 PO; +RIFA550T PO; +SPIR25TA8 PO
[2022-03-23 19:54] LABS: Basophils # (auto) 0 10 ^3/uL (0-0.2); Basophils % (auto) 0.5 % (0.0-2.0); Eosinophils # (auto) 0.1 10 ^3/uL (0-0.8); Eosinophils % (auto) 1.3 % (0.0-7.0); Hematocrit 41.1 % (41.0-53.0); Hemoglobin 14.8 g/dL (13.5-17.5); Lymphocytes # (auto) 1.6 10 ^3/uL (0.4-5.4); Lymphocytes % (auto) 22.1 % (10.0-50.0); Mean Corpuscular Hemoglobin 33.4 pg (28.0-32.0); Mean Corpuscular Volume 92.9 fL (80.0-100.0); Monocytes # (auto) 1.1 10 ^3/uL (0-1.3); Monocytes % (auto) 14.4 % (0.0-12.0); Neutrophils # (auto) 4.5 10 ^3/uL (1.6-8.6); Neutrophils % (auto) 61.7 % (37.0-80.0); Nucleated Red Blood Cells % 0.3 %; Red Blood Cells 4.42 10^6/uL (4.5-5.90); Red Cell Distribution Width 14.5 % (11.8-14.3); White Blood Cell 7.3 10^3/uL (4.4-10.8)
[2022-03-23 20:12] LABS: Albumin 3.7 g/dL (3.4-5.0); Calcium 9.4 mg/dL (8.5-10.1); Potassium 3.9 mmol/L (3.5-5.1)
[2022-03-23 20:18] LABS: BUN/Creatinine Ratio 7.9; Bilirubin, Total 1.3 mg/dL (0.2-1.0); Total Protein 6.9 g/dL (6.4-8.2)
[2022-03-24] MEDS ORDERED: SODIUM CHLORIDE 0.9% 1,000 ML IV ONE ×2 (07:00)
[2022-03-24] MEDS ORDERED: InsuLIN REG 1unit/0.01ml Soln (100units/ml) IV ONE (10:00)
[2022-03-24] MEDS ORDERED: InsuLIN REG 1unit/0.01ml Soln (100units/ml) SC ONE (11:00)
[2022-03-24 15:20] LABS: Urine Bacteria NONE SEEN /hpf (None Seen); Urine Blood Negative /uL (Negative); Urine Specific Gravity 1.049 (1.001-1.035); Urine WBC 1 /hpf (0 - 3)
[2022-03-24] MEDS ORDERED: LORazepam 0.5 MG TAB PO ONE (18:00)
[2022-03-25] MEDS ORDERED: InsuLIN REG 1unit/0.01ml Soln (100units/ml) SC ONE ×2 (07:00→10:45)
[2022-03-25] MEDS ORDERED: SODIUM CHLORIDE 0.9% 1,000 ML IV ONE (07:00)
[2022-03-25] MEDS ORDERED: DEXTROSE (50%) 50ML SYRG IV PRN (10:15)
[2022-03-25] MEDS ORDERED: MORPHINE SULFATE INJ 2 MG/ml SYRG IV PRN (10:30)
[2022-03-25] MEDS ORDERED: DOCUSATE SOD 100 MG CAP PO PRN (10:30)
[2022-03-25] MEDS ORDERED: ONDANSETRON HCL 4 MG/2 ML VIAL IV PRN (10:30)
[2022-03-25 10:35] LABS: Basophils # (auto) 0 10 ^3/uL (0-0.2); Basophils % (auto) 0.4 % (0.0-2.0); Eosinophils # (auto) 0.1 10 ^3/uL (0-0.8); Hematocrit 40.7 % (41.0-53.0); Hemoglobin 14.3 g/dL (13.5-17.5); Lymphocytes # (auto) 0.9 10 ^3/uL (0.4-5.4); Lymphocytes % (auto) 20.9 % (10.0-50.0); Mean Corpuscular Hemoglobin 32.8 pg (28.0-32.0); Mean Corpuscular Volume 93.6 fL (80.0-100.0); Monocytes # (auto) 0.6 10 ^3/uL (0-1.3); Monocytes % (auto) 14.8 % (0.0-12.0); Neutrophils # (auto) 2.6 10 ^3/uL (1.6-8.6); Neutrophils % (auto) 61.9 % (37.0-80.0); Nucleated Red Blood Cells % 0.1 %; Red Blood Cells 4.35 10^6/uL (4.5-5.90); Red Cell Distribution Width 14.9 % (11.8-14.3); White Blood Cell 4.2 10^3/uL (4.4-10.8)
[2022-03-25 10:45] LABS: Calcium 7.8 mg/dL (8.5-10.1); Potassium 3.3 mmol/L (3.5-5.1)
[2022-03-25] MEDS: SODIUM CHLORIDE 0.9% 1,000 ML IV SCH ×2 (11:36→18:31)
[2022-03-25] MEDS: lamoTRIgine 25 MG TAB PO SCH (13:30)
[2022-03-25] MEDS: GABAPENTIN 300 MG CAP PO SCH ×2 (13:30→22:19)
[2022-03-25] MEDS: InsuLIN REG 1unit/0.01ml Soln (100units/ml) SC SCH ×3 (13:31→20:00)
[2022-03-25] MEDS: ACCU-CHEK COMFORT CURVE STRIP VI SCH ×3 (13:31→20:24)
[2022-03-25] MEDS: PROPRANOLOL HCL 20 MG TAB PO SCH ×2 (14:31→22:00)
[2022-03-25] MEDS ORDERED: LACTULOSE 20Gm/30ML SOLN PO SCH (22:00)
[2022-03-25] MEDS: VENLAFAXINE HCL 37.5mg XR cap PO SCH (22:19)
[2022-03-25] MEDS: QUEtiapine FUMARATE 100 MG TAB PO SCH (22:19)
[2022-03-25] MEDS: rifAXIMin 550 MG TAB PO SCH (22:25)
[2022-03-26] MEDS: ACCU-CHEK COMFORT CURVE STRIP VI SCH ×5 (00:05→22:11)
[2022-03-26] MEDS: SODIUM CHLORIDE 0.9% 1,000 ML IV SCH ×3 (03:10→23:05)
[2022-03-26] MEDS: InsuLIN REG 1unit/0.01ml Soln (100units/ml) SC SCH ×5 (04:00→21:57)
[2022-03-26 04:43] LABS: Basophils # (auto) 0 10 ^3/uL (0-0.2); Basophils % (auto) 0.9 % (0.0-2.0); Eosinophils # (auto) 0.2 10 ^3/uL (0-0.8); Eosinophils % (auto) 4.7 % (0.0-7.0); Hematocrit 37.2 % (41.0-53.0); Hemoglobin 13.2 g/dL (13.5-17.5); Lymphocytes # (auto) 1.4 10 ^3/uL (0.4-5.4); Lymphocytes % (auto) 34.6 % (10.0-50.0); Mean Corpuscular Hemoglobin 32.9 pg (28.0-32.0); Mean Corpuscular Hgb Conc. 35.4 g/dL (32.0-36.0); Monocytes # (auto) 0.5 10 ^3/uL (0-1.3); Monocytes % (auto) 12.1 % (0.0-12.0); Neutrophils % (auto) 47.7 % (37.0-80.0); Nucleated Red Blood Cells % 0.1 %; Red Cell Distribution Width 15.1 % (11.8-14.3); White Blood Cell 4.2 10^3/uL (4.4-10.8)
[2022-03-26 05:02] LABS: Potassium 3.1 mmol/L (3.5-5.1)
[2022-03-26 05:07] LABS: Albumin 2.6 g/dL (3.4-5.0); BUN/Creatinine Ratio 20.8
[2022-03-26 05:18] LABS: Bilirubin, Total 0.9 mg/dL (0.2-1.0); Calcium 8.1 mg/dL (8.5-10.1); Total Protein 5.2 g/dL (6.4-8.2)
[2022-03-26] MEDS: PROPRANOLOL HCL 20 MG TAB PO SCH ×3 (06:22→21:54)
[2022-03-26] MEDS ORDERED: FUROSEMIDE 40 MG TAB PO SCH (07:00)
[2022-03-26] MEDS: SPIRONOLACTONE 25 MG TAB PO SCH ×2 (07:01→10:47)
[2022-03-26] MEDS: VENLAFAXINE HCL 37.5mg XR cap PO SCH ×2 (10:00→21:53)
[2022-03-26] MEDS: INSULIN LANTUS (GLARGINE) 1 /0.01ml (100units/ml) SC SCH (10:00)
[2022-03-26] MEDS ORDERED: DEXTROSE (50%) 50ML SYRG IV PRN (10:00)
[2022-03-26] MEDS: ENOXAPARIN SOD 40 MG/0.4 ML SYRINGE SC SCH (10:46)
[2022-03-26] MEDS: LACTULOSE 20Gm/30ML SOLN PO SCH ×2 (10:47→21:52)
[2022-03-26] MEDS: GABAPENTIN 300 MG CAP PO SCH ×2 (10:47→21:53)
[2022-03-26] MEDS: rifAXIMin 550 MG TAB PO SCH ×2 (10:47→21:52)
[2022-03-26] MEDS: lamoTRIgine 25 MG TAB PO SCH (10:47)
[2022-03-26] MEDS: PANTOPRAZOLE 40 MG/10 ML VIAL INJ IV SCH (10:47)
[2022-03-26] MEDS: POTASSIUM CHL 20 Meq TABLET PO SCH (10:48)
[2022-03-26] MEDS: QUEtiapine FUMARATE 100 MG TAB PO SCH (21:53)
[2022-03-27 03:25] VITALS: BP 114/69
[2022-03-27 05:12] LABS: Basophils # (auto) 0 10 ^3/uL (0-0.2); Eosinophils # (auto) 0.3 10 ^3/uL (0-0.8); Eosinophils % (auto) 6.5 % (0.0-7.0); Hematocrit 40.3 % (41.0-53.0); Lymphocytes # (auto) 1.4 10 ^3/uL (0.4-5.4); Lymphocytes % (auto) 35.7 % (10.0-50.0); Mean Corpuscular Hemoglobin 32.5 pg (28.0-32.0); Mean Corpuscular Hgb Conc. 34.8 g/dL (32.0-36.0); Mean Corpuscular Volume 93.2 fL (80.0-100.0); Monocytes # (auto) 0.5 10 ^3/uL (0-1.3); Neutrophils # (auto) 1.7 10 ^3/uL (1.6-8.6); Neutrophils % (auto) 43.8 % (37.0-80.0); Nucleated Red Blood Cells % 0.2 %; Red Blood Cells 4.33 10^6/uL (4.5-5.90); Red Cell Distribution Width 14.8 % (11.8-14.3)
[2022-03-27 05:35] LABS: Albumin 2.7 g/dL (3.4-5.0); Calcium 8.1 mg/dL (8.5-10.1); Potassium 3.7 mmol/L (3.5-5.1)
[2022-03-27 05:37] LABS: BUN/Creatinine Ratio 15.4
[2022-03-27 05:39] LABS: Bilirubin, Total 0.8 mg/dL (0.2-1.0); Total Protein 5.2 g/dL (6.4-8.2)
[2022-03-27] MEDS: PROPRANOLOL HCL 20 MG TAB PO SCH ×3 (06:24→22:12)
[2022-03-27] MEDS: ACCU-CHEK COMFORT CURVE STRIP VI SCH ×4 (06:25→22:08)
[2022-03-27] MEDS: SPIRONOLACTONE 25 MG TAB PO SCH ×2 (06:25→10:28)
[2022-03-27] MEDS: InsuLIN REG 1unit/0.01ml Soln (100units/ml) SC SCH ×4 (06:28→22:05)
[2022-03-27 09:14] VITALS: BP 101/63
[2022-03-27] MEDS: rifAXIMin 550 MG TAB PO SCH ×2 (10:27→22:10)
[2022-03-27] MEDS: GABAPENTIN 300 MG CAP PO SCH ×2 (10:27→22:11)
[2022-03-27] MEDS: ENOXAPARIN SOD 40 MG/0.4 ML SYRINGE SC SCH (10:27)
[2022-03-27] MEDS: POTASSIUM CHL 20 Meq TABLET PO SCH (10:28)
[2022-03-27] MEDS: VENLAFAXINE HCL 37.5mg XR cap PO SCH (10:28)
[2022-03-27] MEDS: LACTULOSE 20Gm/30ML SOLN PO SCH ×3 (10:28→22:12)
[2022-03-27] MEDS: PANTOPRAZOLE 40 MG/10 ML VIAL INJ IV SCH (10:29)
[2022-03-27] MEDS: INSULIN LANTUS (GLARGINE) 1 /0.01ml (100units/ml) SC SCH (10:30)
[2022-03-27] MEDS: lamoTRIgine 25 MG TAB PO SCH (10:51)
[2022-03-27 12:41] VITALS: BP 108/56
[2022-03-27] MEDS: SODIUM CHLORIDE 0.9% 1,000 ML IV SCH (12:46)
[2022-03-27 22:00] VITALS: BP 108/57
[2022-03-27] MEDS ORDERED: VENLAFAXINE HCL 37.5mg XR cap PO SCH (22:00)
[2022-03-27] MEDS: QUEtiapine FUMARATE 100 MG TAB PO SCH (22:11)
[2022-03-28 05:00] VITALS: BP 82/50
[2022-03-28] MEDS: PROPRANOLOL HCL 20 MG TAB PO SCH (06:00)
[2022-03-28] MEDS: InsuLIN REG 1unit/0.01ml Soln (100units/ml) SC SCH ×4 (06:03→21:59)
[2022-03-28] MEDS: ACCU-CHEK COMFORT CURVE STRIP VI SCH ×4 (06:03→21:57)
[2022-03-28] MEDS: SPIRONOLACTONE 25 MG TAB PO SCH ×2 (06:04→09:58)
[2022-03-28 09:00] VITALS: BP 132/87
[2022-03-28] MEDS: GABAPENTIN 300 MG CAP PO SCH ×2 (09:25→21:56)
[2022-03-28] MEDS: lamoTRIgine 25 MG TAB PO SCH (09:25)
[2022-03-28] MEDS: LACTULOSE 20Gm/30ML SOLN PO SCH ×2 (09:25→19:29)
[2022-03-28] MEDS: POTASSIUM CHL 20 Meq TABLET PO SCH (09:25)
[2022-03-28] MEDS: rifAXIMin 550 MG TAB PO SCH ×2 (09:25→21:56)
[2022-03-28] MEDS: PANTOPRAZOLE 40 MG/10 ML VIAL INJ IV SCH (09:26)
[2022-03-28] MEDS: ENOXAPARIN SOD 40 MG/0.4 ML SYRINGE SC SCH (09:26)
[2022-03-28] MEDS: INSULIN LANTUS (GLARGINE) 1 /0.01ml (100units/ml) SC SCH (09:59)
[2022-03-28 12:59] VITALS: BP 108/55
[2022-03-28 16:50] VITALS: BP 111/60
[2022-03-28] MEDS: QUEtiapine FUMARATE 100 MG TAB PO SCH (21:56)
[2022-03-28 22:00] VITALS: BP 111/72
[2022-03-28] MEDS ORDERED: INSULIN LANTUS (GLARGINE) 1 /0.01ml (100units/ml) SC SCH ×2 (22:00)
[2022-03-29 05:00] VITALS: BP 102/68
[2022-03-29] MEDS: SPIRONOLACTONE 25 MG TAB PO SCH ×2 (06:08→10:00)
[2022-03-29] MEDS: ACCU-CHEK COMFORT CURVE STRIP VI SCH ×2 (06:09→11:30)
[2022-03-29] MEDS: InsuLIN REG 1unit/0.01ml Soln (100units/ml) SC SCH ×2 (06:10→11:30)
[2022-03-29 08:00] VITALS: BP 114/64
[2022-03-29] MEDS ORDERED: VENL37.572 PO (09:25)
[2022-03-29] MEDS ORDERED: QUET100T47 PO (09:25)
[2022-03-29] MEDS: ENOXAPARIN SOD 40 MG/0.4 ML SYRINGE SC SCH (10:00)
[2022-03-29] MEDS: lamoTRIgine 25 MG TAB PO SCH (10:00)
[2022-03-29] MEDS: LACTULOSE 20Gm/30ML SOLN PO SCH (10:00)
[2022-03-29] MEDS: rifAXIMin 550 MG TAB PO SCH (10:00)
[2022-03-29] MEDS: GABAPENTIN 300 MG CAP PO SCH (10:00)
[2022-03-29] MEDS: INSULIN LANTUS (GLARGINE) 1 /0.01ml (100units/ml) SC SCH (10:00)
[2022-03-29] MEDS: POTASSIUM CHL 20 Meq TABLET PO SCH (10:00)
[2022-03-29] MEDS ORDERED: VENLAFAXINE HCL 37.5mg XR cap PO SCH (10:00)
[2022-03-29 10:33] VITALS: BP 82/50
== END 2022-03-29 15:37 | disposition home or self-care (01) | DRG 638 ==
LOC: EDBD 18:40 → ER 18:40 → OVERFLOW 03-25 10:26 → CENTRAL 03-27 02:55 → EAST 03-29 11:40
PROVIDERS: ADMIT Nurse Practitioner Family; ATTEND Nurse Practitioner Acute Care
DX: E11.10 Type 2 diabetes mellitus with ketoacidosis without coma (principal); E87.1 Hypo-osmolality and hyponatremia; J98.11 Atelectasis; F23 Brief psychotic disorder; B19.20 Unspecified viral hepatitis C without hepatic coma; F31.9 Bipolar disorder, unspecified; F43.10 Post-traumatic stress disorder, unspecified; F10.10 Alcohol abuse, uncomplicated; F41.9 Anxiety disorder, unspecified; Z20.822 Contact with and (suspected) exposure to COVID-19; K72.10 Chronic hepatic failure without coma; K74.60 Unspecified cirrhosis of liver; Z79.899 Other long term (current) drug therapy; Z81.8 Family history of other mental and behavioral disorders; Z59.00 Homelessness unspecified; Z83.3 Family history of diabetes mellitus; Z88.6 Allergy status to analgesic agent; Z88.0 Allergy status to penicillin; Z91.14 Patient's other noncompliance with medication regimen; Z91.51 Personal history of suicidal behavior
CPT/HCPCS: 36415; 36600; 71045; 80048; 80053; 81001; 82010; 82140; 82805; 82962; 83036; 85025; 87426; 93005; 96360; 96361; 96372; 99291; C9113; G0378; J1815

== ENCOUNTER 2022-04-04 18:47 | Inpatient (IN) | payer OTHER ==
[~2022-04-04] VITALS: Ht 185.4 cm; Wt 84.6 kg
[~2022-04-04 18:47] MED LIST changes: +QUET100T47 PO; +VENL37.572 PO
[2022-04-04 23:42] LABS: Basophils # (auto) 0.1 10 ^3/uL (0-0.2); Basophils % (auto) 0.7 % (0.0-2.0); Eosinophils # (auto) 0.4 10 ^3/uL (0-0.8); Hematocrit 40.6 % (41.0-53.0); Hemoglobin 13.9 g/dL (13.5-17.5); Lymphocytes # (auto) 1.3 10 ^3/uL (0.4-5.4); Lymphocytes % (auto) 17.6 % (10.0-50.0); Mean Corpuscular Hgb Conc. 34.2 g/dL (32.0-36.0); Mean Corpuscular Volume 93.5 fL (80.0-100.0); Monocytes # (auto) 0.5 10 ^3/uL (0-1.3); Monocytes % (auto) 7.4 % (0.0-12.0); Neutrophils # (auto) 4.9 10 ^3/uL (1.6-8.6); Neutrophils % (auto) 69.3 % (37.0-80.0); Nucleated Red Blood Cells % 0.1 %; Red Blood Cells 4.34 10^6/uL (4.5-5.90); Red Cell Distribution Width 14.4 % (11.8-14.3); White Blood Cell 7.1 10^3/uL (4.4-10.8)
[2022-04-04 23:56] LABS: Albumin 2.8 g/dL (3.4-5.0); BUN/Creatinine Ratio 12.5; Calcium 8.6 mg/dL (8.5-10.1); Potassium 3.7 mmol/L (3.5-5.1)
[2022-04-04 23:59] LABS: Bilirubin, Total 1.6 mg/dL (0.2-1.0); Total Protein 6.6 g/dL (6.4-8.2)
[2022-04-05 02:16] LABS: Urine Blood Negative /uL (Negative); Urine Specific Gravity 1.037 (1.001-1.035)
[2022-04-05] MEDS ORDERED: AZITHROMYCIN 500MG/ 250ML 250 ML IV ONE (04:30)
[2022-04-05] MEDS ORDERED: cefTRIAXone 1GM/50ML D5W 50 ML IV ONE (04:30)
[2022-04-05] MEDS ORDERED: HYDROmorphone HCL 2 MG/ML VL/or syr IV ONE ×2 (05:00→05:30)
[2022-04-05] MEDS ORDERED: cefTRIAXone SOD 1,000 MG VL ONE (05:08)
[2022-04-05] MEDS ORDERED: DEXTROSE (50%) 50ML SYRG IV PRN (06:00)
[2022-04-05] MEDS ORDERED: ONDANSETRON HCL 4 MG/2 ML VIAL IV PRN (06:00)
[2022-04-05] MEDS: ACCU-CHEK COMFORT CURVE STRIP VI SCH ×4 (06:31→23:22)
[2022-04-05] MEDS: InsuLIN REG 1unit/0.01ml Soln (100units/ml) SC SCH ×4 (06:35→23:48)
[2022-04-05 07:04] LABS: INR 1.08 (0.9-1.15); Partial Thromboplastin Time 29.9 sec (24.6-33.4)
[2022-04-05] MEDS: SODIUM CHLORIDE 0.9% 1,000 ML IV SCH ×2 (08:01→19:48)
[2022-04-05] MEDS ORDERED: PANTOPRAZOLE 40 MG/10 ML VIAL INJ IV SCH (10:00)
[2022-04-05] MEDS: MORPHINE SULFATE INJ 2 MG/ml SYRG IV PRN ×2 (13:18→19:48)
[2022-04-05] MEDS ORDERED: ASPirin 325 MG TAB PO PRN (18:45)
[2022-04-05] MEDS: LACTULOSE 20Gm/30ML SOLN PO SCH (22:00)
[2022-04-05] MEDS: QUEtiapine FUMARATE 100 MG TAB PO SCH (23:42)
[2022-04-05] MEDS: PROPRANOLOL HCL 20 MG TAB PO SCH (23:45)
[2022-04-05] MEDS: INSULIN LANTUS (GLARGINE) 1 /0.01ml (100units/ml) SC SCH (23:48)
[2022-04-06] VITALS (7 sets, daily range): BP systolic 95–131; BP diastolic 50–82
[2022-04-06] MEDS: PROPRANOLOL HCL 20 MG TAB PO SCH ×3 (05:39→22:30)
[2022-04-06] MEDS: ACCU-CHEK COMFORT CURVE STRIP VI SCH ×3 (05:40→17:05)
[2022-04-06] MEDS: InsuLIN REG 1unit/0.01ml Soln (100units/ml) SC SCH ×3 (05:44→17:23)
[2022-04-06] MEDS: SODIUM CHLORIDE 0.9% 1,000 ML IV SCH ×2 (06:55→22:33)
[2022-04-06 07:20] LABS: Basophils # (auto) 0 10 ^3/uL (0-0.2); Basophils % (auto) 0.9 % (0.0-2.0); Eosinophils # (auto) 0.2 10 ^3/uL (0-0.8); Hematocrit 37.5 % (41.0-53.0); Hemoglobin 12.9 g/dL (13.5-17.5); Lymphocytes # (auto) 1.2 10 ^3/uL (0.4-5.4); Lymphocytes % (auto) 27.1 % (10.0-50.0); Mean Corpuscular Hemoglobin 32.1 pg (28.0-32.0); Mean Corpuscular Hgb Conc. 34.5 g/dL (32.0-36.0); Mean Corpuscular Volume 93.3 fL (80.0-100.0); Monocytes # (auto) 0.6 10 ^3/uL (0-1.3); Monocytes % (auto) 12.8 % (0.0-12.0); Neutrophils # (auto) 2.5 10 ^3/uL (1.6-8.6); Neutrophils % (auto) 55.2 % (37.0-80.0); Nucleated Red Blood Cells % 0.1 %; Red Blood Cells 4.02 10^6/uL (4.5-5.90); Red Cell Distribution Width 14.3 % (11.8-14.3); White Blood Cell 4.5 10^3/uL (4.4-10.8)
[2022-04-06 07:38] LABS: Albumin 2.4 g/dL (3.4-5.0); Calcium 7.6 mg/dL (8.5-10.1); Potassium 3.5 mmol/L (3.5-5.1)
[2022-04-06 07:42] LABS: BUN/Creatinine Ratio 10.5; Total Protein 5.1 g/dL (6.4-8.2)
[2022-04-06] MEDS: LACTULOSE 20Gm/30ML SOLN PO SCH ×2 (09:59→22:00)
[2022-04-06] MEDS: lamoTRIgine 25 MG TAB PO SCH (09:59)
[2022-04-06] MEDS: VENLAFAXINE HCL 37.5mg XR cap PO SCH (10:00)
[2022-04-06] MEDS: MORPHINE SULFATE INJ 2 MG/ml SYRG IV PRN ×3 (11:58→22:32)
[2022-04-06] MEDS: QUEtiapine FUMARATE 100 MG TAB PO SCH (22:28)
[2022-04-06] MEDS: INSULIN LANTUS (GLARGINE) 1 /0.01ml (100units/ml) SC SCH (22:50)
[2022-04-07] MEDS: InsuLIN REG 1unit/0.01ml Soln (100units/ml) SC SCH ×3 (01:06→12:29)
[2022-04-07 05:00] VITALS: BP 102/69
[2022-04-07] MEDS: ACCU-CHEK COMFORT CURVE STRIP VI SCH ×3 (06:05→12:15)
[2022-04-07] MEDS: PROPRANOLOL HCL 20 MG TAB PO SCH ×2 (06:05→14:00)
[2022-04-07 08:00] VITALS: BP 105/49
[2022-04-07 09:00] VITALS: BP 105/49
[2022-04-07] MEDS: VENLAFAXINE HCL 37.5mg XR cap PO SCH (10:00)
[2022-04-07] MEDS: LACTULOSE 20Gm/30ML SOLN PO SCH (10:00)
[2022-04-07] MEDS: lamoTRIgine 25 MG TAB PO SCH (10:00)
[2022-04-07] MEDS: SODIUM CHLORIDE 0.9% 1,000 ML IV SCH (10:42)
[2022-04-07] MEDS: MORPHINE SULFATE INJ 2 MG/ml SYRG IV PRN ×2 (11:16→15:37)
[2022-04-07 13:00] VITALS: BP 111/63
[2022-04-07 13:37] VITALS: BP 111/63
[2022-04-07 16:07] VITALS: BP 130/82
== END 2022-04-07 16:00 | disposition home or self-care (01) | DRG 563 ==
LOC: ER 18:49 → OVERFLOW 04-05 05:47 → WEST WING 04-06 03:09
PROVIDERS: ADMIT Nurse Practitioner; ATTEND Student in an Organized Health Care Education/Training Program
DX: S82.392A Other fracture of lower end of left tibia, initial encounter for closed fracture (principal); K76.6 Portal hypertension; R18.8 Other ascites; E11.65 Type 2 diabetes mellitus with hyperglycemia; K72.10 Chronic hepatic failure without coma; K74.60 Unspecified cirrhosis of liver; Z20.822 Contact with and (suspected) exposure to COVID-19; S82.832A Other fracture of upper and lower end of left fibula, initial encounter for closed fracture; W18.39XA Other fall on same level, initial encounter; E11.22 Type 2 diabetes mellitus with diabetic chronic kidney disease; N18.9 Chronic kidney disease, unspecified; Z79.4 Long term (current) use of insulin; Z91.14 Patient's other noncompliance with medication regimen; Z88.6 Allergy status to analgesic agent; Z88.0 Allergy status to penicillin; Z83.3 Family history of diabetes mellitus; Y93.89 Activity, other specified; Y92.89 Other specified places as the place of occurrence of the external cause; Y99.8 Other external cause status
CPT/HCPCS: 36415; 70450; 71045; 73610; 73700; 80053; 81003; 82140; 82962; 83690; 84484; 85025; 85610; 85730; 87081; 87426; 96365; 96368; 96375; C9113; G0378; J0696; J1815; J2405

== ENCOUNTER 2022-04-29 11:21 | Emergency (ER) | payer OTHER ==
[~2022-04-29] VITALS: Ht 185.4 cm; Wt 101.8 kg
[2022-04-29] MEDS ORDERED: ONDANSETRON HCL 4 MG/2 ML VIAL IV ONE (11:45)
[2022-04-29] MEDS ORDERED: SODIUM CHLORIDE 0.9% 500 ML IV ONE (11:45)
[2022-04-29] MEDS ORDERED: MORPHINE SULFATE 4 MG/ML SYR/VIAL IV ONE (11:45)
[2022-04-29 12:20] LABS: Basophils # (auto) 0.1 10 ^3/uL (0-0.2); Basophils % (auto) 0.9 % (0.0-2.0); Eosinophils # (auto) 0 10 ^3/uL (0-0.8); Eosinophils % (auto) 0.6 % (0.0-7.0); Hematocrit 37.3 % (41.0-53.0); Hemoglobin 12.6 g/dL (13.5-17.5); Lymphocytes # (auto) 0.8 10 ^3/uL (0.4-5.4); Lymphocytes % (auto) 13.7 % (10.0-50.0); Mean Corpuscular Hemoglobin 30.9 pg (28.0-32.0); Mean Corpuscular Hgb Conc. 33.9 g/dL (32.0-36.0); Mean Corpuscular Volume 91.2 fL (80.0-100.0); Monocytes # (auto) 0.7 10 ^3/uL (0-1.3); Monocytes % (auto) 12.7 % (0.0-12.0); Neutrophils # (auto) 4.2 10 ^3/uL (1.6-8.6); Neutrophils % (auto) 72.1 % (37.0-80.0); Nucleated Red Blood Cells % 0.1 %; Red Blood Cells 4.09 10^6/uL (4.5-5.90); White Blood Cell 5.9 10^3/uL (4.4-10.8)
[2022-04-29 12:42] LABS: Albumin 2.2 g/dL (3.4-5.0); Calcium 8.8 mg/dL (8.5-10.1); Potassium 3.8 mmol/L (3.5-5.1)
[2022-04-29 12:48] LABS: BUN/Creatinine Ratio 10.2; Total Protein 7.6 g/dL (6.4-8.2)
[2022-04-29 12:57] LABS: Lactic Acid w/Reflex 2.3 mmol/L (0.4-2.0)
[2022-04-29] MEDS ORDERED: CLINDAMYCIN 600MG IV 50 ML IV ONE (15:15)
[2022-04-29 16:36] VITALS: BP 135/84
== END 2022-04-29 17:21 | disposition hospice, inpatient (51) ==
LOC: ER 11:21
DX: M86.8X7 Other osteomyelitis, ankle and foot (principal); E86.0 Dehydration; E11.65 Type 2 diabetes mellitus with hyperglycemia; I10 Essential (primary) hypertension; Z88.0 Allergy status to penicillin; Z88.6 Allergy status to analgesic agent
CPT/HCPCS: 36415; 73700; 80053; 83605; 85025; 85652; 96361; 96374; 99285; J2405; J7030; J7040; J3490